=== PATIENT | male | born 1955 | race Caucasian/White ===

== ENCOUNTER 2022-11-21 19:18 | Inpatient (IN) ==
[2022-11-21] MEDS ORDERED: 0.9 % SODIUM CHLORIDE 1,000 ML IV ONE (19:26)
--- NOTE | 2022-11-21 19:44 | Emergency Department Note ---
HPI General Chief complaint: Recheck/Abnormal Lab/Rx Stated complaint: Hyponatremia. Pt informed by physician Time Seen by Provider: 11/21/22 19:20 Source: patient Mode of arrival: wheelchair Limitations: no limitations History of Present Illness HPI Narrative: Narrative: The patient presents to the ED due to hyponatremia. Patient had lab work obtained yesterday and was found to have a sodium of 116. His doctor consulted with him and told him to come to the emergency department yesterday. Patient states that he finally got the message this morning and his family states that due to his stubbornness, it took them all day to get him to come in. They do say that he seems slightly more confused than normal. Patient says that he has had a couple episodes of looser stool. He denies vomiting. He has a chronic cough of which she says there is no change. He denies chest pain or abdominal pain. He denies fever. He denies urinary problems. He denies any weakness or numbness. Related Data Home Medications Medication Instructions Recorded Confirmed losartan 25 mg tablet 25 mg PO QDAY 11/20/22 11/20/22 lovastatin 40 mg tablet 40 mg PO QDAY 11/20/22 11/20/22 methocarbamol 500 mg tablet 500 mg PO QDAY 11/20/22 11/20/22 omeprazole 20 mg capsule,delayed 20 mg PO QDAY 11/20/22 11/20/22 release sertraline 100 mg tablet 100 mg PO QDAY 11/20/22 11/20/22 Previous Rx's Medication Instructions Recorded cephalexin 500 mg capsule 500 mg PO Q6H 7 days #28 caps 11/20/22 Allergies Allergy/AdvReac Type Severity Reaction Status Date / Time hydrocodone AdvReac Intermediate Nausea Uncoded 11/20/22 16:58 Review of Systems ROS ROS Narrative: Narrative: All systems ED: reviewed and negative except as stated. [facility] Narrative Patient History Narrative: Narrative: Medical/Surgical/Family History All Active Problems (Updated 11/21/22 @ 20:59 by Cullen Fernandez MD) Acute hyponatremia (Acute) Social History Smoking Status: Current every day smoker Exam Narrative Narrative: Narrative: General Limitations: no limitations General appearance: Present alert and in no apparent distress Head Head: Present atraumatic and normal inspection Eye Eye: Present normal appearance, PERRL and EOMI ENT ENT: Present mucous membranes dry; Absent mucous membranes moist Neck Neck: Present normal inspection, full ROM and trachea midline Chest Chest: Present normal inspection and symmetric chest wall rise Respiratory Respiratory: Present normal lung sounds bilaterally; Absent respiratory distress Cardiovascular Cardiovascular: Present regular rate, normal rhythm and other (Bilateral radial 2+) Adbominal Abdominal: Present soft; Absent distention or tenderness Extremities Extremities: Present normal inspection, full ROM, pedal edema and other (Chronic appearing ulcerations on bilateral lower extremities. The right has no surrounding erythema. The left ulceration has very minimal surrounding erythema.) Back Back: Present full ROM; Absent CVA tenderness (R) or CVA tenderness (L) Neurological Neurological: Present alert, oriented X3 and CN II-XII intact; Absent motor sensory deficit Psychiatric Psychiatric: Present normal affect and normal mood Skin Skin: Present warm (WNL) and dry Course Consultations Consultation #1: I spoke to the hospitalist, Dr. Rodriguez. He agreed to admit this patient. Time: 21:13 Vital Signs Vital signs: Vital Signs Temperature 98.4 F 11/21/22 19:19 Pulse Rate 89 11/21/22 19:19 Respiratory Rate 18 11/21/22 19:19 Blood Pressure 96/53 11/21/22 19:19 Pulse Oximetry (%) 97 11/21/22 19:19 Oxygen Delivery Method Room Air 11/21/22 19:19 Temperature 98.4 F 11/21/22 19:19 Pulse Rate 86 11/21/22 21:01 Respiratory Rate 16 11/21/22 21:01 Blood Pressure 112/60 11/21/22 21:01 Pulse Oximetry (%) 97 11/21/22 21:01 Oxygen Delivery Method Room Air 11/21/22 19:19 [facility] Narrative Medical decision making narrative: Narrative: The patient presents with hyponatremia. Reportedly he is a little bit more confused than normal although appears very lucid in the ED. He has a nonfocal neurologic exam. We will obtain a head CT. We will verify with appropriate labs. We will give a liter bolus and then start NS at 150 an hour. I will consult with hospitalist for admission. Lab Data Lab results reviewed: Yes I reviewed the patient's lab results. 11/21/22 19:48 11/21/22 19:48 Labs: Lab Results 11/21/22 11/21/22 11/21/22 Range/Units 19:47 19:48 19:48 POC Hct 33.0 L (41-55) POC VBG pH 7.50 H (7.32-7.42) POC VBG pCO2 at Temp 35.1 L (41-51) POC VBG pO2 38 (25-40) POC VBG HCO3 27.7 (24-28) POC VBG Total CO2 29.0 (25-29) POC Venous O2 Sat 78.0 H (40-70) POC VBG Base Excess 5.0 H* (-2-2) VBG Lactic Acid 1.9 (0.5-2) POC Sodium 115 L* (133-145) Sodium 110 L* (133-145) mmol/L POC Potassium 3.7 (3.3-5.1) Potassium 3.5 (3.3-5.1) mmol/L POC Chloride 78 L (96-108) Chloride 73 L (96-108) mmol/L Carbon Dioxide 23 (22-30) mmol/L POC Total CO2 27.0 (22-30) Anion Gap 14.0 (8.0-16.0) POC BUN 6 (6-20) BUN 6 L (8-23) mg/dL Creatinine 0.3 L (0.7-1.2) mg/dL POC Creatinine 0.2 L (0.6-1.2) GFR Calculation 138 Glucose 81 (70-105) mg/dL POC Glucose 89 (70-105) Calcium 8.2 L (8.6-10.4) mg/dL POC WB Ioniz Calcium 1.07 L (1.16-1.32) Magnesium 1.5 L (1.6-2.5) mg/dL Total Bilirubin 0.8 (0.1-1.0) mg/dL AST 54 H (<40) U/L ALT 26 (<40) U/L Alkaline Phosphatase 162 H (39-117) U/L Total Protein 6.1 (5.9-8.4) gm/dL Albumin 3.1 L (3.2-5.2) gm/dL Globulin 3.0 (2.2-3.7) gm/dL Albumin/Globulin Ratio 1.0 (1.0-2.3) POC Troponin I (0.00-0.08) 11/21/22 Range/Units 19:49 POC Hct (41-55) POC VBG pH (7.32-7.42) POC VBG pCO2 at Temp (41-51) POC VBG pO2 (25-40) POC VBG HCO3 (24-28) POC VBG Total CO2 (25-29) POC Venous O2 Sat (40-70) POC VBG Base Excess (-2-2) VBG Lactic Acid (0.5-2) POC Sodium (133-145) Sodium (133-145) mmol/L POC Potassium (3.3-5.1) Potassium (3.3-5.1) mmol/L POC Chloride (96-108) Chloride (96-108) mmol/L Carbon Dioxide (22-30) mmol/L POC Total CO2 (22-30) Anion Gap (8.0-16.0) POC BUN (6-20) BUN (8-23) mg/dL Creatinine (0.7-1.2) mg/dL POC Creatinine (0.6-1.2) GFR Calculation Glucose (70-105) mg/dL POC Glucose (70-105) Calcium (8.6-10.4) mg/dL POC WB Ioniz Calcium (1.16-1.32) Magnesium (1.6-2.5) mg/dL Total Bilirubin (0.1-1.0) mg/dL AST (<40) U/L ALT (<40) U/L Alkaline Phosphatase (39-117) U/L Total Protein (5.9-8.4) gm/dL Albumin (3.2-5.2) gm/dL Globulin (2.2-3.7) gm/dL Albumin/Globulin Ratio (1.0-2.3) POC Troponin I < 0.02 (0.00-0.08) ED POC Tests ED POC Tests: ANJELICA - Influenza A Negative ANJELICA - Influenza B Negative ANJELICA - SARS Antigen Negative Radiology Data Radiology results reviewed: Yes I reviewed the patient's radiology results. Radiology results narrative: Per the radiologist, the head CT shows no acute intracranial hemorrhage, acute ischemia, or mass-effect. EKG Data EKG #1: EKG attestation: Yes I reviewed and interpreted this EKG. and Yes There are no EKG findings of acute coronary syndrome EKG results narrative: Sinus, rate 85, normal axis, QTC 499, AR 196, narrow complex QRS, no acute ST or T changes concerning for acute infarction CC TIME Critical Care Time Critical Care Time: Yes Total Critical Care Time: 65 Attestation: Without intervention, patient may have had a deleterious outcome Discharge Plan Patient/Caregiver Discharge Instructions Pt seen by PLASTIC [employer]ILER RELINER/PA only: No Clinical Impression: Acute hyponatremia Patient Disposition: Xfer As Inpt ([facility]) Condition: Fair Follow up with: Daya Yepez ARNP [Primary Care Provider] - Prescriptions: No Action omeprazole 20 mg capsule,delayed release(DR/EC) 20 mg PO QDAY methocarbamol 500 mg tablet 500 mg PO QDAY sertraline 100 mg tablet 100 mg PO QDAY losartan 25 mg tablet 25 mg PO QDAY lovastatin 40 mg tablet 40 mg PO QDAY cephalexin 500 mg capsule 500 mg PO Q6H 7 Days Qty: 28 0RF
[2022-11-21] MEDS: 0.9 % SODIUM CHLORIDE 1,000 ML IV SCH ×2 (19:56→21:17)
[2022-11-21 20:02] LABS: POC Calcium, Ionized 1.07 (1.16-1.32); POC Creatinine 0.2 (0.6-1.2); POC Potassium 3.7 (3.3-5.1)
[2022-11-21 20:41] LABS: ALT/SGPT 26 U/L (<40); AST/SGOT 54 U/L (<40); Albumin 3.1 gm/dL (3.2-5.2); Alkaline Phosphatase 162 U/L (39-117); Bilirubin,Total 0.8 mg/dL (0.1-1.0); Blood Urea Nitrogen 6 mg/dL (8-23); Calcium 8.2 mg/dL (8.6-10.4); Carbon Dioxide 23 mmol/L (22-30); Chloride 73 mmol/L (96-108); Glomerular Filtration Rate 138; Glucose 81 mg/dL (70-105)
[2022-11-21] MEDS ORDERED: MAGNESIUM SULFATE 2 GM/50 ML BAG IV SCH (21:07)
--- NOTE | 2022-11-21 21:18 | Internal Med History&Physical ---
HPI History of Present Illness Patient information: Note initiated : 11/21/22 at 9:07 pm Service Date, if different from initiated Date: [] Patient: Anival Devine a 67 y/o M admitted on for Hyponatremia. Pt informed by physician. Chief Complaint: [] History of present illness: Mr. Devien is a 67 year old M Presents the ED at request of his physician for labs that showed sodium of 116. These labs reviewed done at the urgent care yesterday. He was seen at the urgent care for bilateral leg swelling for which has had about a month but worse over the past week to where it is affecting his ambulation. He feels weak and has fallen few times. Looks like he is commonly around 130 or slightly below for his sodium. Of note patient was on chlorthalidone in the past but was taken off of because of low blood pressure and possibly for low sodium. Daughter stated that the patient struggles at home and that she will be living with the patient. Patient is given cephalexin for possible cellulitis versus Venous stasis dermatitis. Patient was asked to go to the ER given the low sodium. Patient is on an SSRI. Family felt that he might be slightly more confused than normal. Patient appeared lucid in the ED. No nausea vomiting but had a couple episodes of loose stool. Patient has a chronic cough which has not changed. CT brain neg Patient says he has little bit of diarrhea since starting the antibiotic. He is also had some nausea He has not been sick otherwise. No recent med changes. Family states his fluid intake is Average. Patient drinks 3-6 beers a day, states he is gone without alcohol for 3 to 4 days without withdrawals. Review of Systems: Pertinent positives as above plus some chronic mild cough and shortness of breath. Denies headache/fever/chills/nausea/vomiting/chest or abdominal pain/. Remaining 10 point review of system reviewed negative PFSH PFSH All Active Problems (Updated 11/21/22 @ 20:59 by Cullen Fernandez MD) Acute hyponatremia (Acute) Social History smoking status: Current every day smoker MEDS/ALLERGIES Home Medications and Allergies Home Medications Medication Instructions Recorded Confirmed Type cephalexin 500 mg capsule 500 mg PO Q6H 7 days #28 caps 11/20/22 11/20/22 Rx losartan 25 mg tablet 25 mg PO QDAY 11/20/22 11/20/22 History lovastatin 40 mg tablet 40 mg PO QDAY 11/20/22 11/20/22 History methocarbamol 500 mg tablet 500 mg PO QDAY 11/20/22 11/20/22 History omeprazole 20 mg capsule,delayed 20 mg PO QDAY 11/20/22 11/20/22 History release sertraline 100 mg tablet 100 mg PO QDAY 11/20/22 11/20/22 History Allergies Allergy/AdvReac Type Severity Reaction Status Date / Time hydrocodone AdvReac Intermediate Nausea Uncoded 11/21/22 21:30 EXAM Constitutional Vitals: Temp Pulse Resp BP Pulse Ox O2 Del Method 98.4 F 87 16 121/69 99 Room Air 11/21/22 19:19 11/21/22 20:41 11/21/22 20:41 11/21/22 20:41 11/21/22 20:41 11/21/22 19:19 Exam: General: Alert, Awake, No acute Distress Eyes/N/T: EOMI, PERRL, MM Head/Neck: neck supple, normocephalic atraumatic CV: RRR, No murmurs, normal s1/s2 Pulm: Clear b/l, no wheezing/rhonchi/rales Abd: soft, nontender, +BS x4 Ext: no clubbing/cyanosis, RLE 2-3+ and LLE 1+ edema, mild erythema generalized over right and not warm or indurated. Neuro: Alert, no focal deficits, moves all extremities, CN 2-12 grossly intact, sensations intact b/l upper/lower Skin: warm/dry DATA Data Completed and Pending Labs: Labs from last 24 hours 11/21/22 11/21/22 11/21/22 19:49 19:48 19:48 WBC RBC Hgb Hct POC Hct 33.0 L MCV MCH MCHC RDW Plt Count MPV Immature Gran % (Auto) Neut % (Auto) Immature Gran # POC VBG pH POC VBG pCO2 at Temp POC VBG pO2 POC VBG HCO3 POC VBG Total CO2 POC Venous O2 Sat POC VBG Base Excess VBG Lactic Acid POC Sodium 115 L* Sodium 110 L* POC Potassium 3.7 Potassium 3.5 POC Chloride 78 L Chloride 73 L Carbon Dioxide 23 POC Total CO2 27.0 Anion Gap 14.0 POC BUN 6 BUN 6 L Creatinine 0.3 L POC Creatinine 0.2 L GFR Calculation 138 Glucose 81 POC Glucose 89 Calcium 8.2 L POC WB Ioniz Calcium 1.07 L Magnesium 1.5 L Total Bilirubin 0.8 AST 54 H ALT 26 Alkaline Phosphatase 162 H Total Protein 6.1 Albumin 3.1 L Globulin 3.0 Albumin/Globulin Ratio 1.0 POC Troponin I < 0.02 11/21/22 11/21/22 19:48 19:47 WBC Pending RBC Pending Hgb Pending Hct Pending POC Hct MCV Pending MCH Pending MCHC Pending RDW Pending Plt Count Pending MPV Pending Immature Gran % (Auto) Pending Neut % (Auto) Pending Immature Gran # Pending POC VBG pH 7.50 H POC VBG pCO2 at Temp 35.1 L POC VBG pO2 38 POC VBG HCO3 27.7 POC VBG Total CO2 29.0 POC Venous O2 Sat 78.0 H POC VBG Base Excess 5.0 H* VBG Lactic Acid 1.9 POC Sodium Sodium POC Potassium Potassium POC Chloride Chloride Carbon Dioxide POC Total CO2 Anion Gap POC BUN BUN Creatinine POC Creatinine GFR Calculation Glucose POC Glucose Calcium POC WB Ioniz Calcium Magnesium Total Bilirubin AST ALT Alkaline Phosphatase Total Protein Albumin Globulin Albumin/Globulin Ratio POC Troponin I A/P Narrative A/P Narrative: A: *Acute on chronic hyponatremia: * *Hypomagnesemia: *HTN/HLD: *Anemia, chronic: *Depression: *GERD: *Anemia, chronic: *Tobacco abuse: *peripheral edema R>L *outpt treated for possible cellulitis P: -ddavp/3% -fluid restrict -serial sodium -monitor i/o's, uop -Monitor and replace electrolytes and trend - -Decrease SSRI and consider weaning off to alternative as oupt depending on hyponatremia w/u -Home Medication reconciliation -Smoking cessation counseling > 3 minutes -PT/OT -CM for placement needs -ppx: Lovenox Time Spent With Patient Time: Total time spent is greater than 50% in coordination of care (as documented) at patient's floor/unit and/or counseling patient: Initial: Total time with patient: 75 - 90 minutes
[2022-11-21 21:30] LABS: Basophils # (Auto) 0.02 K/mcL (0.00-0.30); Basophils % (Auto) 0.2 % (0.0-2.0); Eosinophils # (Auto) 0 K/mcL (0.00-0.70); Eosinophils % (Auto) 0 % (0.0-7.0); Hematocrit 30.2 % (40.1-51.0); Hemoglobin 11.2 g/dL (13.7-17.5); Lymphocytes # (Auto) 0.24 K/mcL (1.50-4.80); Lymphocytes % (Auto) 2.6 % (15.5-49.0); Mean Cell Volume 100.3 fL (80.0-100.0); Mean Corpuscular HGB Conc 37.1 g/dL (31.0-36.0); Mean Platelet Volume 10.7 fL (8.8-12.5); Monocytes % (Auto) 9.8 % (1.0-12.0); Neutrophils % (Auto) 86.7 % (38.0-78.0); Platelet Count 133 K/mcL (140-440); RBC 3.01 M/mcL (4.63-6.08); Red Cell Distribution Width 11.5 % (11.5-14.5); WBC 9.2 K/mcL (4.5-11.0)
[2022-11-21 22:10] LABS: Thyroid Stimulating Hormone 1.29 uIU/mL (0.27-5.01)
[2022-11-21 22:10] LABS: Appearance,Urine CLEAR (Clear); Bilirubin,Urine NEGATIVE (Negative); Color,Urine LT. YELLOW; Culture Indicated,Urine No; Glucose,Urine (UA) NEGATIVE (Negative); Ketones,Urine TRACE mg/dL (Negative); Leukocyte Esterase,Urine NEGATIVE /uL (Negative); Nitrate,Urine NEGATIVE (Negative); Protein,Urine NEGATIVE (Negative); Specific Gravity,Urine <= 1.005 (1.000-1.035); Urine Blood NEGATIVE ery/mcL (Negative); Urine RBC 0 /hpf (0-3); Urine Squamous Epithelial Cell 0 /hpf (0-4); Urine WBC < 1 /hpf (0-4); Urobilinogen,Urine Normal
[2022-11-21 22:50] LABS: Sodium, Urine Random < 10 mmol/L
[2022-11-21] MEDS ORDERED: POTASSIUM CHLORIDE 40 MEQ in DEXTROSE 5% IN WATER 500 ML IV PRN (23:08)
[2022-11-21] MEDS ORDERED: HYDROcodone/APAP 5/325MG TABLET PO PRN (23:08)
[2022-11-21] MEDS ORDERED: POLYETHYLENE GLYCOL 3350 17 GM PACKET PO PRN (23:08)
[2022-11-21] MEDS ORDERED: ONDANSETRON 4 MG/2 ML VIAL IV PRN (23:08)
[2022-11-21] MEDS ORDERED: POTASSIUM CHLORIDE 20 MEQ TABLET PO PRN ×2 (23:08)
[2022-11-21] MEDS ORDERED: chlordiazePOXIDE 25 MG CAPSULE PO PRN (23:08)
[2022-11-21] MEDS ORDERED: SENNOSIDES 1 TABLET PO PRN (23:08)
[2022-11-21] MEDS ORDERED: LORazepam 2 MG/ML VIAL IV PRN (23:08)
[2022-11-21] MEDS ORDERED: IPRATROPIUM/ALBUTEROL 3 ML AMPUL.NEB NEB PRN (23:08)
[2022-11-21] MEDS ORDERED: MAGNESIUM SULFATE 2 GM/50 ML BAG IV PRN (23:08)
[2022-11-21] MEDS: MULTIVIT,THER IRON,CA,FA & MIN 1 TABLET PO SCH (23:49)
[2022-11-21] MEDS: FOLIC ACID 1 MG TABLET PO SCH ×2 (23:49→23:51)
[2022-11-21] MEDS: 0.9 % SODIUM CHLORIDE 10 ML SYRINGE IV SCH ×2 (23:50→23:51)
[2022-11-21] MEDS: THIAMINE 100 MG TABLET PO SCH (23:51)
[2022-11-22 00:05] LABS: POC Blood Urea Nitrogen < 3 (6-20); POC Calcium, Ionized 1.04 (1.16-1.32); POC Chloride 87 (96-108); POC Creatinine < 0.2 (0.6-1.2); POC Glucose, Random 91 (70-105); POC Potassium 3.2 (3.3-5.1); POC Sodium 122 (133-145)
[2022-11-22] MEDS ORDERED: HYDROcodone/APAP 5/325MG TABLET PO ONE (00:06)
--- NOTE | 2022-11-22 04:14 | Cat Scan Report ---
CLINICAL INFORMATION: Acute mental status change COMPARISON: Brain MRI 12/01/2017 TECHNIQUE: 2.5 mm helical slices were obtained in the skull base to vertex. Following reconstruction, axial reformatted images were reviewed at bone and parenchymal windows. The exam was performed using radiation dose optimization techniques including, but not limited to, automated exposure control, adjustment of the mA and/or kV according to patient size and use of iterative reconstruction technique. FINDINGS: The ventricles, sulci, fissures, and cisterns are symmetrically enlarged compatible with mild age-related atrophy. No extra-axial fluid collections are identified. Mild patchy chronic ischemic changes, in the deep cerebral white matter, are expected for age. There is no hemorrhage, mass effect, or edema. Bone windows show no osseous abnormality. [Opacification of a few inferior right mastoid air cells appreciated IMPRESSION: Mild atrophy and chronic ischemic changes in the deep cerebral white matter-expected for age. No acute findings Mild right mastoiditis Interpreted and Authenticated by: Farhad Myrick 11/22/22
[2022-11-22] MEDS: 0.9 % SODIUM CHLORIDE 10 ML SYRINGE IV SCH ×6 (05:42→20:22)
[2022-11-22 07:05] LABS: ALT/SGPT 22 U/L (<40); AST/SGOT 42 U/L (<40); Albumin 2.5 gm/dL (3.2-5.2); Albumin/Globulin Ratio 0.9 (1.0-2.3); Alkaline Phosphatase 142 U/L (39-117); Bilirubin,Direct 0.3 mg/dL (<0.3); Bilirubin,Total 0.8 mg/dL (0.1-1.0); Blood Urea Nitrogen 3 mg/dL (8-23); Calcium 7.7 mg/dL (8.6-10.4); Carbon Dioxide 25 mmol/L (22-30); Chloride 90 mmol/L (96-108); Globulin 2.8 gm/dL (2.2-3.7); Glomerular Filtration Rate 138; Glucose 87 mg/dL (70-105); Lactate Dehydrogenase 257 U/L (135-225); Phosphorous 3.1 mg/dL (2.5-4.5); Triglycerides 38 mg/dL (<150); Uric Acid 3.2 mg/dL (2.5-8.0)
[2022-11-22 07:55] LABS: Basophils # (Auto) 0.02 K/mcL (0.00-0.30); Basophils % (Auto) 0.2 % (0.0-2.0); Eosinophils # (Auto) 0.01 K/mcL (0.00-0.70); Eosinophils % (Auto) 0.1 % (0.0-7.0); Hematocrit 28.9 % (40.1-51.0); Hemoglobin 10.7 g/dL (13.7-17.5); Lymphocytes % (Auto) 6.1 % (15.5-49.0); Mean Cell Volume 101.8 fL (80.0-100.0); Mean Platelet Volume 10.9 fL (8.8-12.5); Monocytes # (Auto) 0.98 K/mcL (0.10-0.90); Platelet Count 116 K/mcL (140-440); RBC 2.84 M/mcL (4.63-6.08); Red Cell Distribution Width 11.5 % (11.5-14.5); WBC 8.1 K/mcL (4.5-11.0)
[2022-11-22] MEDS ORDERED: METHOCARBAMOL 500 MG TABLET PO PRN (08:12)
--- NOTE | 2022-11-22 08:16 | Internal Med Progress Note ---
SUBJECTIVE Subjective Patient information: Note initiated : 11/22/22 at 8:11 am Service Date, if different from initiated Date: [] Patient: Anival Devine 67 y/o M admitted on 11/21/22 for Hyponatremia. Pt informed by physician. Chief Complaint: [] Interval history: History of present illness: Mr. Devine is a 67 year old M Presents the ED at request of his physician for labs that showed sodium of 116. These labs reviewed done at the urgent care yesterday. He was seen at the urgent care for bilateral leg swelling for which has had about a month but worse over the past week to where it is affecting his ambulation. He feels weak and has fallen few times. Looks like he is commonly around 130 or slightly below for his sodium. Of note patient was on chlorthalidone in the past but was taken off of because of low blood pressure and possibly for low sodium. Daughter stated that the patient struggles at home and that she will be living with the patient. Patient is given cephalexin for possible cellulitis versus Venous stasis de rmatitis. Patient was asked to go to the ER given the low sodium. Patient is on an SSRI. Family felt that he might be slightly more confused than normal. Patient appeared lucid in the ED. No nausea vomiting but had a couple episodes of loose stool. Patient has a chronic cough which has not changed. CT brain neg Patient says he has little bit of diarrhea since starting the antibiotic. He is also had some nausea He has not been sick otherwise. No recent med changes. Family states his fluid intake is Average. Patient drinks 3-6 beers a day, states he is gone without alcohol for 3 to 4 day s without withdrawals. 11/22 Patient seems to sleep well. Patient feeling better today more alert. Sodium corrected too rapidly and will reverse. 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 Review of Systems: denies headache/fever/chills/nausea/vomiting/chest or abdominal pain/cough/dyspnea/diarrhea. Otherwise see above. Constitutional Vitals: Vital Signs Temp Pulse Resp BP Pulse Ox O2 Del Method 97.8 F 72 14 115/60 96 Room Air 11/22/22 08:01 11/22/22 08:01 11/22/22 08:01 11/22/22 08:01 11/22/22 08:01 11/22/22 04:01 Period Temp Pulse Resp BP Sys/Horne Pulse Ox O2 Del Method O2 Flow Rate Last 24 Hr 97.8 F-99.2 F 70-89 13-20 96-122/53-74 96-99 Room Air-Room Air Intake and Output 11/21/22 11/22/22 11/22/22 19:59 03:59 11:59 Intake Total 1505 Output Total 600 500 Balance 905 -500 Weight 61.235 kg 57.878 kg Intake & Output: Intake & Output 11/21/22 11/22/22 11/22/22 19:59 03:59 11:59 Intake Total 1505 Output Total 600 500 Balance 905 -500 Weight 61.235 kg 57.878 kg Intake: IV 1385 Sodium Chloride 0.9% 1,000 ml @ 1335 125 mls/hr IV .Q8H [facility] Rx#: [id number] Oral 120 Output: Void Amount 600 500 Other: Urine Appearance Clear Clear Urine Color Yellow Yellow Urine Odor Normal Normal Exam: General: Alert, Awake, No acute Distress Eyes/N/T: EOMI, Head/Neck: neck supple, CV: RRR, No murmurs, Pulm: Clear b/l, no wheezing/rhonchi/rales Abd: soft, nontender, +BS x4 Ext: no clubbing/cyanosis, RLE 2+ and LLE 1+ edema, mild erythema generalized o anna right and not warm or indurated. Neuro: Alert, no focal deficits, moves all extremities, Skin: warm/dry OBJ DATA Labs 11/22/22 05:30 11/22/22 05:30 Labs: Abnormal Lab Results 11/22/22 11/22/22 11/22/22 05:30 05:30 00:02 RBC 2.84 L Hgb 10.7 L Hct 28.9 L POC Hct 30.0 L MCV 101.8 H MCH 37.7 H MCHC 37.0 H Plt Count 116 L Immature Gran % (Auto) 0.6 H Neut % (Auto) 81.0 H Lymph % (Auto) 6.1 L Lymph # (Auto) 0.50 L [place] # (Auto) 0.98 H Immature Gran # POC VBG pH POC VBG pCO2 at Temp POC Venous O2 Sat POC VBG Base Excess POC Sodium 122 L Sodium 124 L POC Potassium 3.2 L POC Chloride 87 L Chloride 90 L POC BUN < 3 L BUN 3 L Creatinine 0.3 L POC Creatinine < 0.2 L Osmolality Calcium 7.7 L POC WB Ioniz Calcium 1.04 L Magnesium Direct Bilirubin 0.3 H AST 42 H Alkaline Phosphatase 142 H Lactate Dehydrogenase 257 H Total Protein 5.3 L Albumin 2.5 L Albumin/Globulin Ratio 0.9 L Urine Ketones 11/21/22 11/21/22 11/21/22 21:27 21:12 19:48 RBC Hgb Hct POC Hct 33.0 L MCV MCH MCHC Plt Count Immature Gran % (Auto) Neut % (Auto) Lymph % (Auto) Lymph # (Auto) [place] # (Auto) Immature Gran # POC VBG pH POC VBG pCO2 at Temp POC Venous O2 Sat POC VBG Base Excess POC Sodium 115 L* Sodium POC Potassium POC Chloride 78 L Chloride POC BUN BUN Creatinine POC Creatinine 0.2 L Osmolality 232 L Calcium POC WB Ioniz Calcium 1.07 L Magnesium Direct Bilirubin AST Alkaline Phosphatase Lactate Dehydrogenase Total Protein Albumin Albumin/Globulin Ratio Urine Ketones Trace A 11/21/22 11/21/22 11/21/22 19:48 19:48 19:47 RBC 3.01 L Hgb 11.2 L Hct 30.2 L POC Hct MCV 100.3 H MCH 37.2 H MCHC 37.1 H Plt Count 133 L Immature Gran % (Auto) 0.7 H Neut % (Auto) 86.7 H Lymph % (Auto) 2.6 L Lymph # (Auto) 0.24 L [place] # (Auto) Immature Gran # 0.06 H POC VBG pH 7.50 H POC VBG pCO2 at Temp 35.1 L POC Venous O2 Sat 78.0 H POC VBG Base Excess 5.0 H* POC Sodium Sodium 110 L* POC Potassium POC Chloride Chloride 73 L POC BUN BUN 6 L Creatinine 0.3 L POC Creatinine Osmolality Calcium 8.2 L POC WB Ioniz Calcium Magnesium 1.5 L Direct Bilirubin AST 54 H Alkaline Phosphatase 162 H Lactate Dehydrogenase Total Protein Albumin 3.1 L Albumin/Globulin Ratio Urine Ketones Meds: Medications Acetaminophen (Acetaminophen 325 Mg Tablet) 650 mg PO Q6HP PRN; Protocol PRN Reason: Per Pain Protocol/Fever > 101 Hydrocodone Bitart/Acetaminophen (Hydrocodone/Apap 5/325mg Tablet) 1 tab PO Q4HP PRN PRN Reason: PAIN LEVEL 3-6 Last Admin: 11/22/22 00:08 Dose: 1 tab Albuterol/Ipratropium (Ipratropium/Albuterol 3 Ml Ampul.Neb) 3 ml NEB Q4HP PRN PRN Reason: Shortness Of Breath Chlordiazepoxide HCl (Chlordiazepoxide 25 Mg Capsule) 25 mg PO UD PRN; Protocol PRN Reason: Alcohol Withdrawal/Assess CIWA Enoxaparin Sodium (Enoxaparin 40 Mg/0.4 Ml Syringe) 40 mg SQ DAILY [facility] Folic Acid (Folic Acid 1 Mg Tablet) 1 mg PO DAILY [facility] Last Admin: 11/21/22 23:51 Dose: 1 mg Magnesium Sulfate (Magnesium Sulfate) 2 gm in 50 mls @ 50 mls/hr IV UD PRN PRN Reason: Magnesium </= 1.6 Potassium Chloride 40 meq/ (Dextrose) 520 mls @ 130 mls/hr IV UD PRN PRN Reason: Potassium < 3 Iron Carb/Multivit/[place]/Folic Acid (Multivit,Ther Iron,Ca,Fa & Min 1 Tablet) 1 tab PO DAILY [facility] Last Admin: 11/21/22 23:49 Dose: 1 tab Lorazepam (Lorazepam 2 Mg/Ml Vial) 0 mg IV UD PRN; Protocol PRN Reason: Alcohol Withdrawal/Assess CIWA Ondansetron HCl (Ondansetron 4 Mg/2 Ml Vial) 4 mg IV Q4HP PRN PRN Reason: Nausea And Vomiting Polyethylene Glycol (Polyethylene Glycol 3350 17 Gm Packet) 17 gm PO DAILYP PRN PRN Reason: Constipation Potassium Chloride (Potassium Chloride 20 Meq Tablet) 40 meq PO UD PRN PRN Reason: Potassium < 3 Last Admin: 11/22/22 01:52 Dose: 40 meq Potassium Chloride (Potassium Chloride 20 Meq Tablet) 40 meq PO UD PRN PRN Reason: Potssium is 3-3.5 Senna (Sennosides 1 Tablet) 2 tab PO DAILYP PRN PRN Reason: Constipation Sodium Chloride (0.9 % Sodium Chloride 10 Ml Syringe) 10 ml IV Q8 [facility] Last Admin: 11/22/22 05:44 Dose: Not Given Thiamine HCl (Thiamine 100 Mg Tablet) 100 mg PO QDAY [facility] Last Admin: 11/21/22 23:51 Dose: 100 mg A/P Narrative A/P Narrative: A: *Acute on chronic hyponatremia: 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 with low urine sodium and osmolality * *Hypomagnesemia/Hypokalemia: *HTN/HLD: *Anemia, chronic: *Depression: *GERD: *Anemia, chronic: *Tobacco abuse: *Alcohol abuse: *Thrombocytopenia: Likely chronic, monitor *peripheral edema R>L *outpt treated for possible cellulitis P: -ddavp to reverse rapid correction & D5W (large discrepancy between poc chem and lab) -serial sodium -monitor i/o's, uop -Monitor and correct electrolytes deficiencies and trend -CIWA, vitamins/minerals, prn benzo -cont home ARB, statin -Smoking cessation counseling -PT/OT -CM for placement needs -ppx: Lovenox / home ppi Time Spent With Patient Time: Total time spent is greater than 50% in coordination of care (as documented) at patient's floor/unit and/or counseling patient: Subsequent: Total time with patient: 50 - 65 Minutes QUALITY Stroke Symptom Onset Unknown: No VTE Deep Vein Thrombosis/Pulmonary Embolism Present on Admission: No
[2022-11-22] MEDS: FOLIC ACID 1 MG TABLET PO SCH (08:21)
[2022-11-22] MEDS: ENOXAPARIN 40 MG/0.4 ML SYRINGE SQ SCH (08:21)
[2022-11-22] MEDS: THIAMINE 100 MG TABLET PO SCH (08:21)
[2022-11-22] MEDS: MULTIVIT,THER IRON,CA,FA & MIN 1 TABLET PO SCH (08:21)
[2022-11-22] MEDS: OMEPRAZOLE 20 MG CAPSULE PO SCH (08:38)
[2022-11-22] MEDS: LOSARTAN 25 MG TABLET PO SCH (08:38)
[2022-11-22] MEDS: SERTRALINE 50 MG TABLET PO SCH (08:38)
[2022-11-22] MEDS: ATORVASTATIN 10 MG TABLET PO SCH (08:38)
[2022-11-22] MEDS: CEPHALEXIN 500 MG CAPSULE PO SCH ×3 (08:38→20:18)
[2022-11-22 08:39] LABS: POC Blood Urea Nitrogen < 3 (6-20); POC Chloride 89 (96-108); POC Creatinine 0.2 (0.6-1.2); POC Glucose, Random 92 (70-105); POC Potassium 3.7 (3.3-5.1); POC Sodium 125 (133-145)
[2022-11-22] MEDS: DEXTROSE 5% IN WATER 1,000 ML IV SCH ×2 (08:46→15:40)
[2022-11-22] MEDS: DESMOPRESSIN ACETATE 2 MCG in 0.9 % SODIUM CHLORIDE 50 ML IV SCH ×3 (08:51→20:21)
[2022-11-22] MEDS: NICOTINE 21 MG PATCH TOPICAL SCH (10:10)
[2022-11-22] MEDS ORDERED: oxyCODONE/APAP 5/325MG TABLET PO PRN (10:24)
[2022-11-22 11:38] LABS: POC Calcium, Ionized 1.12 (1.16-1.32); POC Creatinine 0.2 (0.6-1.2); POC Potassium 3.3 (3.3-5.1)
[2022-11-22 13:37] LABS: POC Calcium, Ionized 1.02 (1.16-1.32); POC Creatinine 0.2 (0.6-1.2); POC Potassium 3.4 (3.3-5.1)
[2022-11-22 16:19] LABS: POC Blood Urea Nitrogen 5 (6-20); POC Calcium, Ionized 1.09 (1.16-1.32); POC Chloride 85 (96-108); POC Creatinine < 0.2 (0.6-1.2); POC Glucose, Random 102 (70-105); POC Potassium 3.4 (3.3-5.1); POC Sodium 121 (133-145)
[2022-11-22] MEDS ORDERED: NEUTRA PHOS 1 PACKET PO SCH (17:05)
[2022-11-22 17:24] LABS: POC Blood Urea Nitrogen 5 (6-20); POC Calcium, Ionized 1.06 (1.16-1.32); POC Chloride 85 (96-108); POC Creatinine < 0.2 (0.6-1.2); POC Glucose, Random 108 (70-105); POC Potassium 3.3 (3.3-5.1); POC Sodium 120 (133-145)
[2022-11-22] MEDS: DEXTROSE 5%-NS 1,000 ML IV SCH ×2 (17:39→17:58)
[2022-11-22] MEDS ORDERED: DEXTROSE 5% IN WATER 1,000 ML IV SCH (18:00)
[2022-11-22 20:16] LABS: POC Blood Urea Nitrogen 4 (6-20); POC Calcium, Ionized 1.11 (1.16-1.32); POC Chloride 84 (96-108); POC Creatinine < 0.2 (0.6-1.2); POC Glucose, Random 109 (70-105); POC Potassium 3.5 (3.3-5.1); POC Sodium 119 (133-145)
[2022-11-22 21:05] LABS: Blood Urea Nitrogen 6 mg/dL (8-23); Calcium 7.5 mg/dL (8.6-10.4); Carbon Dioxide 25 mmol/L (22-30); Chloride 82 mmol/L (96-108); Glomerular Filtration Rate 138; Glucose 105 mg/dL (70-105)
[2022-11-22] MEDS ORDERED: SODIUM CHLORIDE 3 % 500 ML IV ONE (21:37)
[2022-11-23] MEDS: CEPHALEXIN 500 MG CAPSULE PO SCH ×2 (03:53→08:27)
[2022-11-23] MEDS: 0.9 % SODIUM CHLORIDE 10 ML SYRINGE IV SCH ×3 (05:22→20:27)
[2022-11-23 07:27] LABS: Basophils # (Auto) 0.02 K/mcL (0.00-0.30); Basophils % (Auto) 0.3 % (0.0-2.0); Eosinophils # (Auto) 0.03 K/mcL (0.00-0.70); Eosinophils % (Auto) 0.4 % (0.0-7.0); Hematocrit 28.6 % (40.1-51.0); Hemoglobin 10.3 g/dL (13.7-17.5); Lymphocytes % (Auto) 6.6 % (15.5-49.0); Mean Cell Volume 102.9 fL (80.0-100.0); Mean Platelet Volume 10.5 fL (8.8-12.5); Monocytes # (Auto) 0.64 K/mcL (0.10-0.90); Monocytes % (Auto) 8.5 % (1.0-12.0); Neutrophils % (Auto) 83.4 % (38.0-78.0); Platelet Count 128 K/mcL (140-440); RBC 2.78 M/mcL (4.63-6.08); Red Cell Distribution Width 11.6 % (11.5-14.5); WBC 7.5 K/mcL (4.5-11.0)
--- NOTE | 2022-11-23 07:55 | Internal Med Progress Note ---
SUBJECTIVE Subjective Patient information: Note initiated : 11/23/22 at 7:50 am Service Date, if different from initiated Date: [] Patient: Anival Devine 67 y/o M admitted on 11/21/22 for Hyponatremia. Pt informed by physician. Chief Complaint: [] Interval history: History of present illness: Mr. Devine is a 67 year old M Presents the ED at request of his physician for labs that showed sodium of 116. These labs reviewed done at the urgent care yesterday. He was seen at the urgent care for bilateral leg swelling for which has had about a month but worse over the past week to where it is affecting his ambulation. He feels weak and has fallen few times. Looks like he is commonly around 130 or slightly below for his sodium. Of note patient was on chlorthalidone in the past but was taken off of because of low blood pressure and possibly for low sodium. Daughter stated that the patient struggles at home and that she will be living with the patient. Patient is given cephalexin for possible cellulitis versus Venous stasis de rmatitis. Patient was asked to go to the ER given the low sodium. Patient is on an SSRI. Family felt that he might be slightly more confused than normal. Patient appeared lucid in the ED. No nausea vomiting but had a couple episodes of loose stool. Patient has a chronic cough which has not changed. CT brain neg Patient says he has little bit of diarrhea since starting the antibiotic. He is also had some nausea He has not been sick otherwise. No recent med changes. Family states his fluid intake is Average. Patient drinks 3-6 beers a day, states he is gone without alcohol for 3 to 4 day s without withdrawals. 11/22 Patient seems to sleep well. Patient feeling better today more alert. Sodium corrected too rapidly and will reverse. 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 11/23 Patient says he feels quite tired today. Sodium coming back up appropriately. Monitor closely. No apparent signs of withdrawal at this point. No other complaints. Thrombocytopenia stable. Anemia stable Review of Systems: denies headache/fever/chills/nausea/vomiting/chest or abdominal pain/cough/dyspnea/diarrhea. Otherwise see above. Constitutional Vitals: Vital Signs Temp Pulse Resp BP Pulse Ox O2 Del Method 98.2 F 63 12 113/58 93 Room Air 11/23/22 04:00 11/23/22 06:01 11/23/22 06:01 11/23/22 06:01 11/23/22 06:01 11/23/22 04:20 Period Temp Pulse Resp BP Sys/Horne Pulse Ox O2 Del Method O2 Flow Rate Last 24 Hr 97 F-98.2 F 63-77 12-27 95-139/51-78 92-100 Room Air-Room Air Intake and Output 11/22/22 11/23/22 11/23/22 19:59 03:59 11:59 Intake Total 923.5 1077.5 Output Total 250 Balance 923.5 1077.5 -250 Intake & Output: Intake & Output 11/22/22 11/23/22 11/23/22 19:59 03:59 11:59 Intake Total 923.5 1077.5 Output Total 250 Balance 923.5 1077.5 -250 Intake: IV 923.5 505.5 Ddavp 2 Mcg In Sodium Chloride 50.5 50.5 0.9% 50 ml @ 200 mls/hr IV Q6H [facility] Rx#:[id number] Dextrose 5% in Water 1,000 ml @ 873 354 125 mls/hr IV .Q8H [facility] Rx#: [id number] Sodium Chloride 3% 500 ml @ 20 101 mls/hr IV ONCE ONE Rx#: [id number] Oral 572 Output: Void Amount 250 Other: Meal Lunch 1 pudding, 1 ice cream Percent of Meal Consumed 50% 100% Feeding Ability Independent Urine Appearance Clear Urine Color Red Brown Urine Odor Normal Stool Size Large Stool Color Brown Yellow Stool Consistency Liquid # Bowel Movements 2 # of times incontinent of 0 Bowels Exam: General: Alert, Awake, No acute Distress Eyes/N/T: EOMI, Head/Neck: neck supple, CV: RRR, No murmurs, Pulm: Clear b/l, no wheezing/rhonchi/rales Abd: soft, nontender, +BS x4 Ext: no clubbing/cyanosis, mild b/l LE edema, Neuro: Alert, no focal deficits, moves all extremities, Skin: warm/dry OBJ DATA Labs 11/23/22 05:30 11/23/22 01:57 Labs: Abnormal Lab Results 11/23/22 11/23/22 11/22/22 05:30 01:57 22:50 RBC 2.78 L Hgb 10.3 L Hct 28.6 L POC Hct MCV 102.9 H MCH 37.1 H MCHC Plt Count 128 L Immature Gran % (Auto) 0.8 H Neut % (Auto) 83.4 H Lymph % (Auto) 6.6 L Lymph # (Auto) 0.50 L [place] # (Auto) Immature Gran # 0.06 H POC VBG pH POC VBG pCO2 at Temp POC Venous O2 Sat POC VBG Base Excess POC Sodium Sodium 118 L* 114 L* POC Potassium POC Chloride Chloride Anion Gap POC BUN BUN Creatinine POC Creatinine POC Glucose Osmolality Calcium POC WB Ioniz Calcium Phosphorus Magnesium Direct Bilirubin AST Alkaline Phosphatase Lactate Dehydrogenase Total Protein Albumin Albumin/Globulin Ratio Urine Ketones 11/22/22 11/22/22 11/22/22 20:12 20:04 20:04 RBC Hgb Hct POC Hct 29.0 L MCV MCH MCHC Plt Count Immature Gran % (Auto) Neut % (Auto) Lymph % (Auto) Lymph # (Auto) [place] # (Auto) Immature Gran # POC VBG pH POC VBG pCO2 at Temp POC Venous O2 Sat POC VBG Base Excess POC Sodium 119 L Sodium 113 L* POC Potassium POC Chloride 84 L Chloride 82 L Anion Gap 6.0 L POC BUN 4 L BUN 6 L Creatinine 0.3 L POC Creatinine < 0.2 L POC Glucose 109 H Osmolality Calcium 7.5 L POC WB Ioniz Calcium 1.11 L Phosphorus 2.1 L Magnesium Direct Bilirubin AST Alkaline Phosphatase Lactate Dehydrogenase Total Protein Albumin Albumin/Globulin Ratio Urine Ketones 11/22/22 11/22/22 11/22/22 17:21 16:16 13:33 RBC Hgb Hct POC Hct 30.0 L 30.0 L 28.0 L MCV MCH MCHC Plt Count Immature Gran % (Auto) Neut % (Auto) Lymph % (Auto) Lymph # (Auto) [place] # (Auto) Immature Gran # POC VBG pH POC VBG pCO2 at Temp POC Venous O2 Sat POC VBG Base Excess POC Sodium 120 L 121 L 122 L Sodium POC Potassium POC Chloride 85 L 85 L 88 L Chloride Anion Gap POC BUN 5 L 5 L 5 L BUN Creatinine POC Creatinine < 0.2 L < 0.2 L 0.2 L POC Glucose 108 H 164 H Osmolality Calcium POC WB Ioniz Calcium 1.06 L 1.09 L 1.02 L Phosphorus Magnesium Direct Bilirubin AST Alkaline Phosphatase Lactate Dehydrogenase Total Protein Albumin Albumin/Globulin Ratio Urine Ketones 11/22/22 11/22/22 11/22/22 11:35 08:37 05:30 RBC Hgb Hct POC Hct 28.0 L 32.0 L MCV MCH MCHC Plt Count Immature Gran % (Auto) Neut % (Auto) Lymph % (Auto) Lymph # (Auto) [place] # (Auto) Immature Gran # POC VBG pH POC VBG pCO2 at Temp POC Venous O2 Sat POC VBG Base Excess POC Sodium 123 L 125 L Sodium 124 L POC Potassium POC Chloride 88 L 89 L Chloride 90 L Anion Gap POC BUN < 3 L BUN 3 L Creatinine 0.3 L POC Creatinine 0.2 L 0.2 L POC Glucose 119 H Osmolality Calcium 7.7 L POC WB Ioniz Calcium 1.12 L 1.10 L Phosphorus Magnesium Direct Bilirubin 0.3 H AST 42 H Alkaline Phosphatase 142 H Lactate Dehydrogenase 257 H Total Protein 5.3 L Albumin 2.5 L Albumin/Globulin Ratio 0.9 L Urine Ketones 11/22/22 11/22/22 11/21/22 05:30 00:02 21:27 RBC 2.84 L Hgb 10.7 L Hct 28.9 L POC Hct 30.0 L MCV 101.8 H MCH 37.7 H MCHC 37.0 H Plt Count 116 L Immature Gran % (Auto) 0.6 H Neut % (Auto) 81.0 H Lymph % (Auto) 6.1 L Lymph # (Auto) 0.50 L [place] # (Auto) 0.98 H Immature Gran # POC VBG pH POC VBG pCO2 at Temp POC Venous O2 Sat POC VBG Base Excess POC Sodium 122 L Sodium POC Potassium 3.2 L POC Chloride 87 L Chloride Anion Gap POC BUN < 3 L BUN Creatinine POC Creatinine < 0.2 L POC Glucose Osmolality Calcium POC WB Ioniz Calcium 1.04 L Phosphorus Magnesium Direct Bilirubin AST Alkaline Phosphatase Lactate Dehydrogenase Total Protein Albumin Albumin/Globulin Ratio Urine Ketones Trace A 11/21/22 11/21/22 11/21/22 21:12 19:48 19:48 RBC Hgb Hct POC Hct 33.0 L MCV MCH MCHC Plt Count Immature Gran % (Auto) Neut % (Auto) Lymph % (Auto) Lymph # (Auto) [place] # (Auto) Immature Gran # POC VBG pH POC VBG pCO2 at Temp POC Venous O2 Sat POC VBG Base Excess POC Sodium 115 L* Sodium 110 L* POC Potassium POC Chloride 78 L Chloride 73 L Anion Gap POC BUN BUN 6 L Creatinine 0.3 L POC Creatinine 0.2 L POC Glucose Osmolality 232 L Calcium 8.2 L POC WB Ioniz Calcium 1.07 L Phosphorus Magnesium 1.5 L Direct Bilirubin AST 54 H Alkaline Phosphatase 162 H Lactate Dehydrogenase Total Protein Albumin 3.1 L Albumin/Globulin Ratio Urine Ketones 11/21/22 11/21/22 19:48 19:47 RBC 3.01 L Hgb 11.2 L Hct 30.2 L POC Hct MCV 100.3 H MCH 37.2 H MCHC 37.1 H Plt Count 133 L Immature Gran % (Auto) 0.7 H Neut % (Auto) 86.7 H Lymph % (Auto) 2.6 L Lymph # (Auto) 0.24 L [place] # (Auto) Immature Gran # 0.06 H POC VBG pH 7.50 H POC VBG pCO2 at Temp 35.1 L POC Venous O2 Sat 78.0 H POC VBG Base Excess 5.0 H* POC Sodium Sodium POC Potassium POC Chloride Chloride Anion Gap POC BUN BUN Creatinine POC Creatinine POC Glucose Osmolality Calcium POC WB Ioniz Calcium Phosphorus Magnesium Direct Bilirubin AST Alkaline Phosphatase Lactate Dehydrogenase Total Protein Albumin Albumin/Globulin Ratio Urine Ketones Meds: Medications Acetaminophen (Acetaminophen 325 Mg Tablet) 650 mg PO Q6HP PRN; Protocol PRN Reason: Per Pain Protocol/Fever > 101 Albuterol/Ipratropium (Ipratropium/Albuterol 3 Ml Ampul.Neb) 3 ml NEB Q4HP PRN PRN Reason: Shortness Of Breath Atorvastatin Calcium (Atorvastatin 10 Mg Tablet) 10 mg PO QDAY [facility] Last Admin: 11/22/22 08:38 Dose: 10 mg Cephalexin HCl (Cephalexin 500 Mg Capsule) 500 mg PO Q6H [facility]; Protocol Last Admin: 11/23/22 03:53 Dose: 500 mg Chlordiazepoxide HCl (Chlordiazepoxide 25 Mg Capsule) 25 mg PO UD PRN; Protocol PRN Reason: Alcohol Withdrawal/Assess CIWA Enoxaparin Sodium (Enoxaparin 40 Mg/0.4 Ml Syringe) 40 mg SQ DAILY [facility] Last Admin: 11/22/22 08:21 Dose: 40 mg Folic Acid (Folic Acid 1 Mg Tablet) 1 mg PO DAILY [facility] Last Admin: 11/22/22 08:21 Dose: 1 mg Magnesium Sulfate (Magnesium Sulfate) 2 gm in 50 mls @ 50 mls/hr IV UD PRN PRN Reason: Magnesium </= 1.6 Potassium Chloride 40 meq/ (Dextrose) 520 mls @ 130 mls/hr IV UD PRN PRN Reason: Potassium < 3 Sodium Chloride (Sodium Chloride 3%) 500 mls @ 20 mls/hr IV ONCE ONE Stop: 11/23/22 22:36 Last Infusion: 11/23/22 02:43 Dose: 0 mls/hr Iron Carb/Multivit/[place]/Folic Acid (Multivit,Ther Iron,Ca,Fa & Min 1 Tablet) 1 tab PO DAILY [facility] Last Admin: 11/22/22 08:21 Dose: 1 tab Lorazepam (Lorazepam 2 Mg/Ml Vial) 0 mg IV UD PRN; Protocol PRN Reason: Alcohol Withdrawal/Assess CIWA Losartan Potassium (Losartan 25 Mg Tablet) 25 mg PO QDAY [facility] Last Admin: 11/22/22 08:38 Dose: 25 mg Methocarbamol (Methocarbamol 500 Mg Tablet) 500 mg PO DAILYP PRN PRN Reason: spasm Nicotine (Nicotine 21 Mg Patch) 21 mg TOPICAL DAILY@1000 [facility] Last Admin: 11/22/22 10:10 Dose: 21 mg Omeprazole (Omeprazole 20 Mg Capsule) 20 mg PO QAMAC [facility] Last Admin: 11/22/22 08:38 Dose: 20 mg Ondansetron HCl (Ondansetron 4 Mg/2 Ml Vial) 4 mg IV Q4HP PRN PRN Reason: Nausea And Vomiting Oxycodone/Acetaminophen (Oxycodone/Apap 5/325mg Tablet) 1 tab PO Q4HP PRN; Protocol PRN Reason: Pain Last Admin: 11/23/22 04:10 Dose: 1 tab Pneumococcal Polyvalent Vaccine (Pneumococcal 23-Claudia P-Sac Vac 0.5 Ml Syringe) 0.5 ml IM .ONCE ONE Stop: 11/24/22 09:01 Polyethylene Glycol (Polyethylene Glycol 3350 17 Gm Packet) 17 gm PO DAILYP PRN PRN Reason: Constipation Potassium Chloride (Potassium Chloride 20 Meq Tablet) 40 meq PO UD PRN PRN Reason: Potassium < 3 Last Admin: 11/22/22 01:52 Dose: 40 meq Potassium Chloride (Potassium Chloride 20 Meq Tablet) 40 meq PO UD PRN PRN Reason: Potssium is 3-3.5 Senna (Sennosides 1 Tablet) 2 tab PO DAILYP PRN PRN Reason: Constipation Sertraline HCl (Sertraline 50 Mg Tablet) 75 mg PO QDAY [facility] Last Admin: 11/22/22 08:38 Dose: 75 mg Sodium Chloride (0.9 % Sodium Chloride 10 Ml Syringe) 10 ml IV Q8 [facility] Last Admin: 11/23/22 05:22 Dose: 10 ml Thiamine HCl (Thiamine 100 Mg Tablet) 100 mg PO QDAY [facility] Last Admin: 11/22/22 08:21 Dose: 100 mg A/P Narrative A/P Narrative: A: *Acute on chronic hyponatremia: 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 only using lab draw now but does delay read out unfortunately by a few hours -large discrepancy between poc chem and lab, 5-6 point difference making mangmnt difficult -serial sodium -monitor i/o's, uop -Monitor and correct electrolytes deficiencies and trend -CIWA, vitamins/minerals, prn benzo -cont home ARB, statin -Smoking cessation counseling -PT/OT -CM for placement needs -ppx: Lovenox / home ppi Time Spent With Patient Time: Total time spent is greater than 50% in coordination of care (as documented) at patient's floor/unit and/or counseling patient: Subsequent: Total time with patient: 50 - 65 Minutes QUALITY Stroke Symptom Onset Unknown: No VTE Deep Vein Thrombosis/Pulmonary Embolism Present on Admission: No
[2022-11-23 07:58] LABS: ALT/SGPT 21 U/L (<40); AST/SGOT 32 U/L (<40); Albumin 2.2 gm/dL (3.2-5.2); Albumin/Globulin Ratio 0.8 (1.0-2.3); Alkaline Phosphatase 131 U/L (39-117); Bilirubin,Direct 0.2 mg/dL (<0.3); Bilirubin,Total 0.5 mg/dL (0.1-1.0); Blood Urea Nitrogen 5 mg/dL (8-23); Calcium 7.7 mg/dL (8.6-10.4); Carbon Dioxide 23 mmol/L (22-30); Chloride 87 mmol/L (96-108); Globulin 2.9 gm/dL (2.2-3.7); Glomerular Filtration Rate 163; Glucose 104 mg/dL (70-105); Lactate Dehydrogenase 222 U/L (135-225); Phosphorous 2.9 mg/dL (2.5-4.5); Triglycerides 43 mg/dL (<150); Uric Acid 1.8 mg/dL (2.5-8.0)
[2022-11-23] MEDS: ENOXAPARIN 40 MG/0.4 ML SYRINGE SQ SCH (08:27)
[2022-11-23] MEDS: ATORVASTATIN 10 MG TABLET PO SCH (08:27)
[2022-11-23] MEDS: SERTRALINE 50 MG TABLET PO SCH (08:27)
[2022-11-23] MEDS: FOLIC ACID 1 MG TABLET PO SCH (08:28)
[2022-11-23] MEDS: LOSARTAN 25 MG TABLET PO SCH (08:28)
[2022-11-23] MEDS: THIAMINE 100 MG TABLET PO SCH (08:28)
[2022-11-23] MEDS: MULTIVIT,THER IRON,CA,FA & MIN 1 TABLET PO SCH (08:28)
[2022-11-23] MEDS: OMEPRAZOLE 20 MG CAPSULE PO SCH (08:29)
[2022-11-23] MEDS: NICOTINE 21 MG PATCH TOPICAL SCH (10:28)
--- NOTE | 2022-11-23 12:00 | Discharge Summary ---
Discharge Provider Provider IMPORTANT FOLLOW-UP INFORMATION FOR PCP: Patient information: Note initiated : 11/23/22 at 11:59 am Service Date, if different from initiated Date: [] Patient: Anival Devine 67 y/o M admitted on 11/21/22 for Hyponatremia. Pt informed by physician. Chief Complaint: [] Date of admission: 11/21/22 22:53 Primary care physician: Daya Yepez Consults: 11/21/22 Consult to Physician [CONS] Stat Comment: Consulting Provider: Alfredo Rodriguez Reason For Exam: Physician to Consult COURSE Hospital Course Hospital course: History of present illness: Mr. Devine is a 67 year old M Presents the ED at request of his physician for labs that showed sodium of 116. These labs reviewed done at the urgent care yesterday. He was seen at the urgent care for bilateral leg swelling for which has had about a month but worse over the past week to where it is affecting his ambulation. He feels weak and has fallen few times. Looks like he is commonly around 130 or slightly below for his sodium. Of note patient was on chlorthalidone in the past but was taken off of because of low blood pressure and possibly for low sodium. Daughter stated that the patient struggles at home and that she will be living with the patient. Patient is given cephalexin for possible cellulitis versus Venous stasis dermatitis. Patient was asked to go to the ER given the low sodium. Patient is on an SSRI. Family felt that he might be slightly more confused than normal. Patient appeared lucid in the ED. No nausea vomiting but had a couple episodes of loose stool. Patient has a chronic cough which has not changed. CT brain neg Patient says he has little bit of diarrhea since starting the antibiotic. He is also had some nausea He has not been sick otherwise. No recent med changes. Family states his fluid intake is Average. Patient drinks 3-6 beers a day, states he is gone without alcohol for 3 to 4 days without withdrawals. 11/22 Patient seems to sleep well. Patient feeling better today more alert. Sodium corrected too rapidly and will reverse. 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 11/23 Patient says he feels quite tired today. Sodium coming back up appropriately. Monitor closely. No apparent signs of withdrawal at this point. No other complaints. Thrombocytopenia stable. Anemia stable A: *Acute on chronic hyponatremia: 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 with low urine sodium and osmolality *Hypomagnesemia/Hypokalemia/Hypophos: *HTN/HLD: *Anemia, chronic: *Depression: *GERD: *Tobacco abuse: *Alcohol abuse: *Thrombocytopenia: Likely chronic, monitor *peripheral edema R>L *outpt treated for possible cellulitis: P: -Alcohol cessation Discharge diagnosis: Acute on chronic hyponatremia alcohol abuse electrolyte disturbance beer Po Secondary discharge diagnosis: . Potomania chronic anemia depression GERD tobacco abuse alcohol abuse thrombocytopenia Time Spent with Patient Time attestation: Total time spent providing and/or coordinating discharge services: EXAM Constitutional Vitals: Temp Pulse Resp BP Pulse Ox O2 Del Method 98.2 F 63 12 113/58 96 Room Air 11/23/22 04:00 11/23/22 06:01 11/23/22 06:01 11/23/22 06:01 11/23/22 08:00 11/23/22 08:00 Discharge Data Data Completed and Pending Labs on day of discharge: Labs from last 24 hours 11/23/22 11/23/22 11/23/22 07:55 05:30 05:30 WBC 7.5 RBC 2.78 L Hgb 10.3 L Hct 28.6 L POC Hct MCV 102.9 H MCH 37.1 H MCHC 36.0 RDW 11.6 Plt Count 128 L MPV 10.5 Immature Gran % (Auto) 0.8 H Neut % (Auto) 83.4 H Lymph % (Auto) 6.6 L [place] % (Auto) 8.5 Eos % (Auto) 0.4 Baso % (Auto) 0.3 Lymph # (Auto) 0.50 L [place] # (Auto) 0.64 Eos # (Auto) 0.03 Baso # (Auto) 0.02 Immature Gran # 0.06 H Absolute Neutrophils 6.27 POC Sodium Sodium 118 L* 118 L* POC Potassium Potassium 3.4 POC Chloride Chloride 87 L Carbon Dioxide 23 POC Total CO2 Anion Gap 8.0 POC BUN BUN 5 L Creatinine 0.2 L POC Creatinine GFR Calculation 163 Glucose 104 POC Glucose Uric Acid 1.8 L Calcium 7.7 L POC WB Ioniz Calcium Phosphorus 2.9 Magnesium 1.6 Total Bilirubin 0.5 Direct Bilirubin 0.2 GGT 58 AST 32 ALT 21 Alkaline Phosphatase 131 H Lactate Dehydrogenase 222 Total Protein 5.1 L Albumin 2.2 L Globulin 2.9 Albumin/Globulin Ratio 0.8 L Triglycerides 43 11/23/22 11/22/22 11/22/22 01:57 22:50 20:12 WBC RBC Hgb Hct POC Hct 29.0 L MCV MCH MCHC RDW Plt Count MPV Immature Gran % (Auto) Neut % (Auto) Lymph % (Auto) [place] % (Auto) Eos % (Auto) Baso % (Auto) Lymph # (Auto) [place] # (Auto) Eos # (Auto) Baso # (Auto) Immature Gran # Absolute Neutrophils POC Sodium 119 L Sodium 118 L* 114 L* POC Potassium 3.5 Potassium POC Chloride 84 L Chloride Carbon Dioxide POC Total CO2 24.0 Anion Gap POC BUN 4 L BUN Creatinine POC Creatinine < 0.2 L GFR Calculation Glucose POC Glucose 109 H Uric Acid Calcium POC WB Ioniz Calcium 1.11 L Phosphorus Magnesium Total Bilirubin Direct Bilirubin GGT AST ALT Alkaline Phosphatase Lactate Dehydrogenase Total Protein Albumin Globulin Albumin/Globulin Ratio Triglycerides 11/22/22 11/22/22 11/22/22 20:04 20:04 17:21 WBC RBC Hgb Hct POC Hct 30.0 L MCV MCH MCHC RDW Plt Count MPV Immature Gran % (Auto) Neut % (Auto) Lymph % (Auto) [place] % (Auto) Eos % (Auto) Baso % (Auto) Lymph # (Auto) [place] # (Auto) Eos # (Auto) Baso # (Auto) Immature Gran # Absolute Neutrophils POC Sodium 120 L Sodium 113 L* POC Potassium 3.3 Potassium 3.5 POC Chloride 85 L Chloride 82 L Carbon Dioxide 25 POC Total CO2 24.0 Anion Gap 6.0 L POC BUN 5 L BUN 6 L Creatinine 0.3 L POC Creatinine < 0.2 L GFR Calculation 138 Glucose 105 POC Glucose 108 H Uric Acid Calcium 7.5 L POC WB Ioniz Calcium 1.06 L Phosphorus 2.1 L Magnesium Total Bilirubin Direct Bilirubin GGT AST ALT Alkaline Phosphatase Lactate Dehydrogenase Total Protein Albumin Globulin Albumin/Globulin Ratio Triglycerides 11/22/22 11/22/22 16:16 13:33 WBC RBC Hgb Hct POC Hct 30.0 L 28.0 L MCV MCH MCHC RDW Plt Count MPV Immature Gran % (Auto) Neut % (Auto) Lymph % (Auto) [place] % (Auto) Eos % (Auto) Baso % (Auto) Lymph # (Auto) [place] # (Auto) Eos # (Auto) Baso # (Auto) Immature Gran # Absolute Neutrophils POC Sodium 121 L 122 L Sodium POC Potassium 3.4 3.4 Potassium POC Chloride 85 L 88 L Chloride Carbon Dioxide POC Total CO2 25.0 24.0 Anion Gap POC BUN 5 L 5 L BUN Creatinine POC Creatinine < 0.2 L 0.2 L GFR Calculation Glucose POC Glucose 102 164 H Uric Acid Calcium POC WB Ioniz Calcium 1.09 L 1.02 L Phosphorus Magnesium Total Bilirubin Direct Bilirubin GGT AST ALT Alkaline Phosphatase Lactate Dehydrogenase Total Protein Albumin Globulin Albumin/Globulin Ratio Triglycerides Discharge Plan Patient/Caregiver Discharge Instructions Activity: increase activity as tolerated Diet: Regular Diet Prescriptions: New furosemide [Lasix] 40 mg tablet 40 mg PO QAM Qty: 10 0RF Continued omeprazole 20 mg capsule,delayed release(DR/EC) 20 mg PO QDAY methocarbamol 500 mg tablet 500 mg PO QDAY sertraline 100 mg tablet 100 mg PO QDAY losartan 25 mg tablet 25 mg PO QDAY lovastatin 40 mg tablet 40 mg PO QDAY Discontinued cephalexin 500 mg capsule 500 mg PO Q6H 7 Days Qty: 28 0RF Follow Up Plan Follow up with: Daya Yepez ARNP [Primary Care Provider] - Patient Disposition: Xfer SNF Prognosis: Fair Rehab Potential: Fair I certify that the patient requires SNF services: Yes Overall status at discharge: patient is progressing back to baseline QUALITY VTE Deep Vein Thrombosis/Pulmonary Embolism Present on Admission: No
[2022-11-23] MEDS ORDERED: ALBUMIN HUMAN 12.5 GM/50 ML VIAL IV SCH (19:52)
[2022-11-23] MEDS ORDERED: FUROSEMIDE 40 MG/4 ML VIAL IV SCH (19:52)
[2022-11-24] MEDS: 0.9 % SODIUM CHLORIDE 10 ML SYRINGE IV SCH ×3 (04:48→20:49)
--- NOTE | 2022-11-24 07:38 | Internal Med Progress Note ---
SUBJECTIVE Subjective Patient information: Note initiated : 11/24/22 at 7:34 am Service Date, if different from initiated Date: [] Patient: Anival Devine 67 y/o M admitted on 11/21/22 for Hyponatremia. Pt informed by physician. Chief Complaint: [] Interval history: History of present illness: Mr. Devine is a 67 year old M Presents the ED at request of his physician for labs that showed sodium of 116. These labs reviewed done at the urgent care yesterday. He was seen at the urgent care for bilateral leg swelling for which has had about a month but worse over the past week to where it is affecting his ambulation. He feels weak and has fallen few times. Looks like he is commonly around 130 or slightly below for his sodium. Of note patient was on chlorthalidone in the past but was taken off of because of low blood pressure and possibly for low sodium. Daughter stated that the patient struggles at home and that she will be living with the patient. Patient is given cephalexin for possible cellulitis versus Venous stasis de rmatitis. Patient was asked to go to the ER given the low sodium. Patient is on an SSRI. Family felt that he might be slightly more confused than normal. Patient appeared lucid in the ED. No nausea vomiting but had a couple episodes of loose stool. Patient has a chronic cough which has not changed. CT brain neg Patient says he has little bit of diarrhea since starting the antibiotic. He is also had some nausea He has not been sick otherwise. No recent med changes. Family states his fluid intake is Average. Patient drinks 3-6 beers a day, states he is gone without alcohol for 3 to 4 day s without withdrawals. 11/22 Patient seems to sleep well. Patient feeling better today more alert. Sodium corrected too rapidly and will reverse. 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 11/23 Patient says he feels quite tired today. Sodium coming back up appropriately. Monitor closely. No apparent signs of withdrawal at this point. No other complaints. Thrombocytopenia stable. Anemia stable 11/24 Still feels tired and this morning. He is sitting up in bed eating breakfast. Because of the leg edema that he had come in with the pain associated with it as well the IV fluids that have been infused - we gave him lasix with albumen and he diuresed a significant amount of fluid last night. no more edema in legs except for some mild pedal edema right foot. will monitor sodium closely. Pt states his legs are feeling better. Review of Systems: denies headache/fever/chills/nausea/vomiting/chest or abdominal pain/cough/dyspnea/diarrhea. Otherwise see above. Constitutional Vitals: Vital Signs Temp Pulse Resp BP Pulse Ox O2 Del Method 98.2 F 66 15 128/75 95 Room Air 11/24/22 04:01 11/24/22 06:00 11/24/22 06:00 11/24/22 06:00 11/24/22 06:00 11/24/22 06:00 Period Temp Pulse Resp BP Sys/Horne Pulse Ox O2 Del Method O2 Flow Rate Last 24 Hr 97.2 F-98.3 F 58-94 13-21 106-143/64-93 94-100 Room Air-Room Air Intake and Output 11/23/22 11/24/22 11/24/22 19:59 03:59 11:59 Intake Total 1030 100 120 Output Total 2200 3100 Balance -1170 -3000 120 Weight 61 kg Intake & Output: Intake & Output 11/23/22 11/24/22 11/24/22 19:59 03:59 11:59 Intake Total 1030 100 120 Output Total 2200 3100 Balance -1170 -3000 120 Weight 61 kg Intake: IV 100 Dextrose 5% in Water 1,000 ml @ 0 100 mls/hr IV .Q10H [facility] Rx#: [id number] Sodium Chloride 3% 500 ml @ 20 0 mls/hr IV ONCE ONE Rx#: [id number] Oral 1030 120 Output: Void Amount 1925 3100 Stool 275 Other: Meal Dinner Percent of Meal Consumed 75% Feeding Ability Independent Urine Appearance Clear Clear Urine Color Bright Yellow Bright Yellow Urine Odor Normal Normal Stool Size Large Stool Color Yellow Stool Consistency Loose # Voids 0 # Bowel Movements 1 # of times incontinent of 0 Bowels Exam: General: Alert, Awake, No acute Distress Eyes/N/T: EOMI, Head/Neck: neck supple, CV: RRR, No murmurs, Pulm: Clear b/l, no wheezing/rhonchi/rales Abd: soft, nontender, +BS x4 Ext: no clubbing/cyanosis, only mild pedal edema right foot now. Right Valdes ulceration with eschar Neuro: Alert, no focal deficits, moves all extremities, Skin: warm/dry OBJ DATA Labs 11/23/22 05:30 11/23/22 23:00 Labs: Abnormal Lab Results 11/23/22 11/23/22 11/23/22 23:00 18:15 12:02 RBC Hgb Hct POC Hct MCV MCH MCHC Plt Count Immature Gran % (Auto) Neut % (Auto) Lymph % (Auto) Lymph # (Auto) [place] # (Auto) Immature Gran # POC VBG pH POC VBG pCO2 at Temp POC Venous O2 Sat POC VBG Base Excess POC Sodium Sodium 123 L 119 L* 119 L* POC Potassium POC Chloride Chloride Anion Gap POC BUN BUN Creatinine POC Creatinine POC Glucose Osmolality Uric Acid Calcium POC WB Ioniz Calcium Phosphorus Magnesium Direct Bilirubin AST Alkaline Phosphatase Lactate Dehydrogenase Total Protein Albumin Albumin/Globulin Ratio Urine Ketones 11/23/22 11/23/22 11/23/22 07:55 05:30 05:30 RBC 2.78 L Hgb 10.3 L Hct 28.6 L POC Hct MCV 102.9 H MCH 37.1 H MCHC Plt Count 128 L Immature Gran % (Auto) 0.8 H Neut % (Auto) 83.4 H Lymph % (Auto) 6.6 L Lymph # (Auto) 0.50 L [place] # (Auto) Immature Gran # 0.06 H POC VBG pH POC VBG pCO2 at Temp POC Venous O2 Sat POC VBG Base Excess POC Sodium Sodium 118 L* 118 L* POC Potassium POC Chloride Chloride 87 L Anion Gap POC BUN BUN 5 L Creatinine 0.2 L POC Creatinine POC Glucose Osmolality Uric Acid 1.8 L Calcium 7.7 L POC WB Ioniz Calcium Phosphorus Magnesium Direct Bilirubin AST Alkaline Phosphatase 131 H Lactate Dehydrogenase Total Protein 5.1 L Albumin 2.2 L Albumin/Globulin Ratio 0.8 L Urine Ketones 11/23/22 11/22/22 11/22/22 01:57 22:50 20:12 RBC Hgb Hct POC Hct 29.0 L MCV MCH MCHC Plt Count Immature Gran % (Auto) Neut % (Auto) Lymph % (Auto) Lymph # (Auto) [place] # (Auto) Immature Gran # POC VBG pH POC VBG pCO2 at Temp POC Venous O2 Sat POC VBG Base Excess POC Sodium 119 L Sodium 118 L* 114 L* POC Potassium POC Chloride 84 L Chloride Anion Gap POC BUN 4 L BUN Creatinine POC Creatinine < 0.2 L POC Glucose 109 H Osmolality Uric Acid Calcium POC WB Ioniz Calcium 1.11 L Phosphorus Magnesium Direct Bilirubin AST Alkaline Phosphatase Lactate Dehydrogenase Total Protein Albumin Albumin/Globulin Ratio Urine Ketones 11/22/22 11/22/22 11/22/22 20:04 20:04 17:21 RBC Hgb Hct POC Hct 30.0 L MCV MCH MCHC Plt Count Immature Gran % (Auto) Neut % (Auto) Lymph % (Auto) Lymph # (Auto) [place] # (Auto) Immature Gran # POC VBG pH POC VBG pCO2 at Temp POC Venous O2 Sat POC VBG Base Excess POC Sodium 120 L Sodium 113 L* POC Potassium POC Chloride 85 L Chloride 82 L Anion Gap 6.0 L POC BUN 5 L BUN 6 L Creatinine 0.3 L POC Creatinine < 0.2 L POC Glucose 108 H Osmolality Uric Acid Calcium 7.5 L POC WB Ioniz Calcium 1.06 L Phosphorus 2.1 L Magnesium Direct Bilirubin AST Alkaline Phosphatase Lactate Dehydrogenase Total Protein Albumin Albumin/Globulin Ratio Urine Ketones 11/22/22 11/22/22 11/22/22 16:16 13:33 11:35 RBC Hgb Hct POC Hct 30.0 L 28.0 L 28.0 L MCV MCH MCHC Plt Count Immature Gran % (Auto) Neut % (Auto) Lymph % (Auto) Lymph # (Auto) [place] # (Auto) Immature Gran # POC VBG pH POC VBG pCO2 at Temp POC Venous O2 Sat POC VBG Base Excess POC Sodium 121 L 122 L 123 L Sodium POC Potassium POC Chloride 85 L 88 L 88 L Chloride Anion Gap POC BUN 5 L 5 L BUN Creatinine POC Creatinine < 0.2 L 0.2 L 0.2 L POC Glucose 164 H 119 H Osmolality Uric Acid Calcium POC WB Ioniz Calcium 1.09 L 1.02 L 1.12 L Phosphorus Magnesium Direct Bilirubin AST Alkaline Phosphatase Lactate Dehydrogenase Total Protein Albumin Albumin/Globulin Ratio Urine Ketones 11/22/22 11/22/22 11/22/22 08:37 05:30 05:30 RBC 2.84 L Hgb 10.7 L Hct 28.9 L POC Hct 32.0 L MCV 101.8 H MCH 37.7 H MCHC 37.0 H Plt Count 116 L Immature Gran % (Auto) 0.6 H Neut % (Auto) 81.0 H Lymph % (Auto) 6.1 L Lymph # (Auto) 0.50 L [place] # (Auto) 0.98 H Immature Gran # POC VBG pH POC VBG pCO2 at Temp POC Venous O2 Sat POC VBG Base Excess POC Sodium 125 L Sodium 124 L POC Potassium POC Chloride 89 L Chloride 90 L Anion Gap POC BUN < 3 L BUN 3 L Creatinine 0.3 L POC Creatinine 0.2 L POC Glucose Osmolality Uric Acid Calcium 7.7 L POC WB Ioniz Calcium 1.10 L Phosphorus Magnesium Direct Bilirubin 0.3 H AST 42 H Alkaline Phosphatase 142 H Lactate Dehydrogenase 257 H Total Protein 5.3 L Albumin 2.5 L Albumin/Globulin Ratio 0.9 L Urine Ketones 11/22/22 11/21/22 11/21/22 00:02 21:27 21:12 RBC Hgb Hct POC Hct 30.0 L MCV MCH MCHC Plt Count Immature Gran % (Auto) Neut % (Auto) Lymph % (Auto) Lymph # (Auto) [place] # (Auto) Immature Gran # POC VBG pH POC VBG pCO2 at Temp POC Venous O2 Sat POC VBG Base Excess POC Sodium 122 L Sodium POC Potassium 3.2 L POC Chloride 87 L Chloride Anion Gap POC BUN < 3 L BUN Creatinine POC Creatinine < 0.2 L POC Glucose Osmolality 232 L Uric Acid Calcium POC WB Ioniz Calcium 1.04 L Phosphorus Magnesium Direct Bilirubin AST Alkaline Phosphatase Lactate Dehydrogenase Total Protein Albumin Albumin/Globulin Ratio Urine Ketones Trace A 11/21/22 11/21/22 11/21/22 19:48 19:48 19:48 RBC 3.01 L Hgb 11.2 L Hct 30.2 L POC Hct 33.0 L MCV 100.3 H MCH 37.2 H MCHC 37.1 H Plt Count 133 L Immature Gran % (Auto) 0.7 H Neut % (Auto) 86.7 H Lymph % (Auto) 2.6 L Lymph # (Auto) 0.24 L [place] # (Auto) Immature Gran # 0.06 H POC VBG pH POC VBG pCO2 at Temp POC Venous O2 Sat POC VBG Base Excess POC Sodium 115 L* Sodium 110 L* POC Potassium POC Chloride 78 L Chloride 73 L Anion Gap POC BUN BUN 6 L Creatinine 0.3 L POC Creatinine 0.2 L POC Glucose Osmolality Uric Acid Calcium 8.2 L POC WB Ioniz Calcium 1.07 L Phosphorus Magnesium 1.5 L Direct Bilirubin AST 54 H Alkaline Phosphatase 162 H Lactate Dehydrogenase Total Protein Albumin 3.1 L Albumin/Globulin Ratio Urine Ketones 11/21/22 19:47 RBC Hgb Hct POC Hct MCV MCH MCHC Plt Count Immature Gran % (Auto) Neut % (Auto) Lymph % (Auto) Lymph # (Auto) [place] # (Auto) Immature Gran # POC VBG pH 7.50 H POC VBG pCO2 at Temp 35.1 L POC Venous O2 Sat 78.0 H POC VBG Base Excess 5.0 H* POC Sodium Sodium POC Potassium POC Chloride Chloride Anion Gap POC BUN BUN Creatinine POC Creatinine POC Glucose Osmolality Uric Acid Calcium POC WB Ioniz Calcium Phosphorus Magnesium Direct Bilirubin AST Alkaline Phosphatase Lactate Dehydrogenase Total Protein Albumin Albumin/Globulin Ratio Urine Ketones Meds: Medications Acetaminophen (Acetaminophen 325 Mg Tablet) 650 mg PO Q6HP PRN; Protocol PRN Reason: Per Pain Protocol/Fever > 101 Albuterol/Ipratropium (Ipratropium/Albuterol 3 Ml Ampul.Neb) 3 ml NEB Q4HP PRN PRN Reason: Shortness Of Breath Atorvastatin Calcium (Atorvastatin 10 Mg Tablet) 10 mg PO QDAY [facility] Last Admin: 11/23/22 08:27 Dose: 10 mg Chlordiazepoxide HCl (Chlordiazepoxide 25 Mg Capsule) 25 mg PO UD PRN; Protocol PRN Reason: Alcohol Withdrawal/Assess CIWA Enoxaparin Sodium (Enoxaparin 40 Mg/0.4 Ml Syringe) 40 mg SQ DAILY [facility] Last Admin: 11/23/22 08:27 Dose: 40 mg Folic Acid (Folic Acid 1 Mg Tablet) 1 mg PO DAILY [facility] Last Admin: 11/23/22 08:28 Dose: 1 mg Magnesium Sulfate (Magnesium Sulfate) 2 gm in 50 mls @ 50 mls/hr IV UD PRN PRN Reason: Magnesium </= 1.6 Last Infusion: 11/24/22 03:38 Dose: Infused Potassium Chloride 40 meq/ (Dextrose) 520 mls @ 130 mls/hr IV UD PRN PRN Reason: Potassium < 3 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/Folic Acid (Multivit,Ther Iron,Ca,Fa & Min 1 Tablet) 1 tab PO DAILY [facility] Last Admin: 11/23/22 08:28 Dose: 1 tab Lorazepam (Lorazepam 2 Mg/Ml Vial) 0 mg IV UD PRN; Protocol PRN Reason: Alcohol Withdrawal/Assess CIWA Losartan Potassium (Losartan 25 Mg Tablet) 25 mg PO QDAY [facility] Last Admin: 11/23/22 08:28 Dose: 25 mg Methocarbamol (Methocarbamol 500 Mg Tablet) 500 mg PO DAILYP PRN PRN Reason: spasm Nicotine (Nicotine 21 Mg Patch) 21 mg TOPICAL DAILY@1000 [facility] Last Admin: 11/23/22 10:28 Dose: 21 mg Omeprazole (Omeprazole 20 Mg Capsule) 20 mg PO QAMAC [facility] Last Admin: 11/23/22 08:29 Dose: 20 mg Ondansetron HCl (Ondansetron 4 Mg/2 Ml Vial) 4 mg IV Q4HP PRN PRN Reason: Nausea And Vomiting Oxycodone/Acetaminophen (Oxycodone/Apap 5/325mg Tablet) 1 tab PO Q4HP PRN; Protocol PRN Reason: Pain Last Admin: 11/23/22 04:10 Dose: 1 tab Pneumococcal Polyvalent Vaccine (Pneumococcal 23-Claudia P-Sac Vac 0.5 Ml Syringe) 0.5 ml IM .ONCE ONE Stop: 11/24/22 09:01 Polyethylene Glycol (Polyethylene Glycol 3350 17 Gm Packet) 17 gm PO DAILYP PRN PRN Reason: Constipation Potassium Chloride (Potassium Chloride 20 Meq Tablet) 40 meq PO UD PRN PRN Reason: Potassium < 3 Last Admin: 11/22/22 01:52 Dose: 40 meq Potassium Chloride (Potassium Chloride 20 Meq Tablet) 40 meq PO UD PRN PRN Reason: Potssium is 3-3.5 Senna (Sennosides 1 Tablet) 2 tab PO DAILYP PRN PRN Reason: Constipation Sertraline HCl (Sertraline 50 Mg Tablet) 75 mg PO QDAY [facility] Last Admin: 11/23/22 08:27 Dose: 75 mg Sodium Chloride (0.9 % Sodium Chloride 10 Ml Syringe) 10 ml IV Q8 [facility] Last Admin: 11/24/22 04:48 Dose: 10 ml Thiamine HCl (Thiamine 100 Mg Tablet) 100 mg PO QDAY [facility] Last Admin: 11/23/22 08:28 Dose: 100 mg A/P Narrative A/P Narrative: A: *Acute on chronic hyponatremia: 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 with low urine sodium and osmolality * *Hypomagnesemia/Hypokalemia/Hypophos: *HTN/HLD: *Anemia, chronic: *Depression: *GERD: *Anemia, chronic: *Tobacco abuse: *Alcohol abuse: *Thrombocytopenia: Likely chronic, monitor *peripheral edema R>L *outpt treated for possible cellulitis: *Right leg ulceration P: -monitor serial sodium, -monitor i/o's, uop, fluid balance -wound care for leg -Monitor and correct electrolytes deficiencies and trend -CIWA, vitamins/minerals, prn benzo -cont home ARB, statin -Smoking cessation counseling -PT/OT -CM for placement needs -ppx: Lovenox / home ppi Time Spent With Patient Time: Total time spent is greater than 50% in coordination of care (as documented) at patient's floor/unit and/or counseling patient: Subsequent: Total time with patient: 50 - 65 Minutes QUALITY Stroke Symptom Onset Unknown: No VTE Deep Vein Thrombosis/Pulmonary Embolism Present on Admission: No
--- NOTE | 2022-11-24 08:00 | EKG ---
[facility] Test Date: 2022-11-21 Pat Name: Anival Devine Department: ED Room: Gender: Male [employer] Sciences Director: SS : [id number] Requested By: Cullen Fernandez Order Number: [id number] Reading MD: Angel Rodriguez Measurements Intervals [place] Rate: 85 P: 71 ME: 196 QRS: 68 QRSD: 96 T: 48 QT: 419 QTc: 499 Interpretive Statements Sinus rhythm Minimal ST depression, inferior leads Borderline prolonged QT interval Electronically Signed On 11-24-2022 7:45:53 PST by Angel Rodriguez /[id number]
[2022-11-24] MEDS: THIAMINE 100 MG TABLET PO SCH (08:38)
[2022-11-24] MEDS: SERTRALINE 50 MG TABLET PO SCH (08:38)
[2022-11-24] MEDS: ATORVASTATIN 10 MG TABLET PO SCH (08:38)
[2022-11-24] MEDS: LOSARTAN 25 MG TABLET PO SCH (08:39)
[2022-11-24] MEDS: MULTIVIT,THER IRON,CA,FA & MIN 1 TABLET PO SCH (08:39)
[2022-11-24] MEDS: ENOXAPARIN 40 MG/0.4 ML SYRINGE SQ SCH (08:39)
[2022-11-24] MEDS: FOLIC ACID 1 MG TABLET PO SCH (08:39)
[2022-11-24] MEDS: OMEPRAZOLE 20 MG CAPSULE PO SCH (08:39)
[2022-11-24] MEDS ORDERED: PNEUMOCOCCAL 23-VAL P-SAC VAC 0.5 ML SYRINGE IM ONE (09:00)
[2022-11-24] MEDS ORDERED: FLU VACC QS2022-23(6MOS UP)/PF 60 MCG/0.5 ML SYRINGE IM ONE (09:00)
[2022-11-24] MEDS: SODIUM CHLORIDE 1 GM TABLET PO SCH ×2 (10:09→20:49)
[2022-11-24] MEDS: NICOTINE 21 MG PATCH TOPICAL SCH (10:13)
[2022-11-24] MEDS: ACETAMINOPHEN 325 MG TABLET PO PRN ×2 (10:13→17:40)
[2022-11-24 10:24] LABS: Blood Urea Nitrogen 3 mg/dL (8-23); Calcium 8.2 mg/dL (8.6-10.4); Carbon Dioxide 27 mmol/L (22-30); Chloride 87 mmol/L (96-108); Glomerular Filtration Rate 138; Glucose 110 mg/dL (70-105)
[2022-11-24 10:52] LABS: Phosphorous 2.6 mg/dL (2.5-4.5)
--- NOTE | 2022-11-24 11:55 | General Surgery Consult Note ---
HPI Date of Consult Consult Date: 11/24/22 Requesting physician: Alfredo Rodriguez Primary Care Provider: Daya Yepez Consult Narrative Patient Information: Note initiated : 11/24/22 at 11:35 am Service Date, if different from initiated Date: [] Patient: Anival Devine 67 y/o M admitted on 11/21/22 for Hyponatremia. Pt informed by physician. Chief Complaint: [] Chief complaint: Open wound RIGHT lower leg. Hyponatremia rsolving. Reason for consult: Evaluation and treatment of wound / ulcer Right leg. cc:: I saw this gentleman in ICU with Sissy Ramos RN Inpatient wound care nurse.CC: Alfredo Rodriguez. Discussed plan of care with Dr. Rodriguez. Musculoskeletal Additional comments: Claudication. DENIES h/o rest pain. Everyday smoker. Integumentary Integumentary: Present wounds Additional comments: Edema of both legs. Skin tears and ulcer RIGHT lower lateral leg. PFSH PFSH All Active Problems Acute hyponatremia (Acute) Social History smoking status: Current every day smoker MEDS/ALLERGIES Home Medications and Allergies Home Medications Medication Instructions Recorded Confirmed Type losartan 25 mg tablet 25 mg PO QDAY 11/20/22 11/22/22 History lovastatin 40 mg tablet 40 mg PO QDAY 11/20/22 11/22/22 History methocarbamol 500 mg tablet 500 mg PO QDAY 11/20/22 11/22/22 History omeprazole 20 mg capsule,delayed 20 mg PO QDAY 11/20/22 11/22/22 History release sertraline 100 mg tablet 100 mg PO QDAY 11/20/22 11/22/22 History furosemide 40 mg tablet (Lasix) 40 mg PO QAM #10 tabs 11/23/22 Rx Allergies Allergy/AdvReac Type Severity Reaction Status Date / Time hydrocodone AdvReac Intermediate Nausea Uncoded 11/21/22 21:30 Physical Examination Vital Signs Vital signs: Temp Pulse Resp BP Pulse Ox O2 Del Method 97.4 F 87 14 102/55 97 Room Air 11/24/22 08:01 11/24/22 10:01 11/24/22 10:11/24/22 10:01 11/24/22 10:01 11/24/22 10:01 General physical appearance General physical exam: well nourished, no distress, no pain and other (Thin built.) Eyes Eye exam: PERRL and other (Wears glasses.) ENT ENT exam: normal pinna, normal mucosa and no congestion Head Head exam IM: Present atraumatic and normocephalic Neck Neck exam: no masses and no venous distension Cardiovascular Cardiovascular exam IM: Present normal rate and rhythm Peripheral pulses: 0: posterior tibialis (R) and 1+: dorsalis pedis (L) and dorsalis pedis (R) Respiratory Respiratory exam: normal expansion, normal respiratory effort and clear to auscultation Abdomen Abdomen: Present soft, non tender and bowel sounds Integumentary Integumentary: Present other (Resolving edema of both legs with wrinkling of skin. Dry stage 1 epidrmal skin tears RIGHT and LEFT lower legs. Sharp edges arond toenails. VLU Stage 3 RIGHT lower lateral leg with necrotic eschar. ) Neurologic Neurologic: Present normal coordination and normal sensation Musculoskeletal Musculoskeletal: Present other (FROM all joints all extermities. Ambulates without assistance.) Psychiatric Psychiatric: Present oriented to time, oriented to person, oriented to place, speech is normal and memory intact Results Labs 11/23/22 05:30 11/24/22 04:50 Labs: Abnormal lab results 11/23/22 11/23/22 11/23/22 Range/Units 12:02 18:15 23:00 Sodium 119 L* 119 L* 123 L (133-145) mmol/L Chloride (96-108) mmol/L BUN (8-23) mg/dL Creatinine (0.7-1.2) mg/dL Glucose (70-105) mg/dL Calcium (8.6-10.4) mg/dL 11/24/22 Range/Units 04:50 Sodium 123 L (133-145) mmol/L Chloride 87 L (96-108) mmol/L BUN 3 L (8-23) mg/dL Creatinine 0.3 L (0.7-1.2) mg/dL Glucose 110 H (70-105) mg/dL Calcium 8.2 L (8.6-10.4) mg/dL Diabetes panel 11/23/22 11/23/22 11/23/22 Range/Units 12:02 18:15 23:00 Sodium 119 L* 119 L* 123 L (133-145) mmol/L Potassium (3.3-5.1) mmol/L Chloride (96-108) mmol/L Carbon Dioxide (22-30) mmol/L BUN (8-23) mg/dL Creatinine (0.7-1.2) mg/dL Glucose (70-105) mg/dL Calcium (8.6-10.4) mg/dL 11/24/22 Range/Units 04:50 Sodium 123 L (133-145) mmol/L Potassium 3.3 (3.3-5.1) mmol/L Chloride 87 L (96-108) mmol/L Carbon Dioxide 27 (22-30) mmol/L BUN 3 L (8-23) mg/dL Creatinine 0.3 L (0.7-1.2) mg/dL Glucose 110 H (70-105) mg/dL Calcium 8.2 L (8.6-10.4) mg/dL Calcium panel 11/24/22 11/24/22 Range/Units 04:50 09:40 Calcium 8.2 L (8.6-10.4) mg/dL Phosphorus 2.6 (2.5-4.5) mg/dL Pituitary panel 11/23/22 11/23/22 11/23/22 Range/Units 12:02 18:15 23:00 Sodium 119 L* 119 L* 123 L (133-145) mmol/L Potassium (3.3-5.1) mmol/L Chloride (96-108) mmol/L Carbon Dioxide (22-30) mmol/L BUN (8-23) mg/dL Creatinine (0.7-1.2) mg/dL Glucose (70-105) mg/dL Calcium (8.6-10.4) mg/dL 11/24/22 Range/Units 04:50 Sodium 123 L (133-145) mmol/L Potassium 3.3 (3.3-5.1) mmol/L Chloride 87 L (96-108) mmol/L Carbon Dioxide 27 (22-30) mmol/L BUN 3 L (8-23) mg/dL Creatinine 0.3 L (0.7-1.2) mg/dL Glucose 110 H (70-105) mg/dL Calcium 8.2 L (8.6-10.4) mg/dL Adrenal panel 11/23/22 11/23/22 11/23/22 Range/Units 12:02 18:15 23:00 Sodium 119 L* 119 L* 123 L (133-145) mmol/L Potassium (3.3-5.1) mmol/L Chloride (96-108) mmol/L Carbon Dioxide (22-30) mmol/L BUN (8-23) mg/dL Creatinine (0.7-1.2) mg/dL Glucose (70-105) mg/dL Calcium (8.6-10.4) mg/dL 11/24/22 Range/Units 04:50 Sodium 123 L (133-145) mmol/L Potassium 3.3 (3.3-5.1) mmol/L Chloride 87 L (96-108) mmol/L Carbon Dioxide 27 (22-30) mmol/L BUN 3 L (8-23) mg/dL Creatinine 0.3 L (0.7-1.2) mg/dL Glucose 110 H (70-105) mg/dL Calcium 8.2 L (8.6-10.4) mg/dL All other labs normal. Imaging Chest x-ray: report reviewed and image reviewed Additional studies: CT head without contrast is UNREMARKABLE. Chronic changes atrophy. No acute findings. A/P Narrative A/P Narrative: Assessment: VLU Right lower lateral leg. PAD with claudication Hyponatremia improving. Plan of Treatment: Plan: Bedside debridement of RIGHT lower lateral leg. Tissue for c/s. Silvasorb, Adaptic, gauze. X 2 week. If discharged f/u at wound care clinic. Time Spent With Patient Time: Total time spent is greater than 50% in coordination of care (as documented) at patient's floor/unit and/or counseling patient: Initial: Total time with patient: Less than 40 minutes
--- NOTE | 2022-11-24 11:59 | General Surgery Procedure Note ---
Date of procedure: Note initiated : 11/24/22 at 11:55 am Service Date, if different from initiated Date: [] Pre-op diagnosis: Venous leg ulcer RIGHT lower leg with necrotic eschar Post-op diagnosis: same Procedure: Selective debridement at bedside. Findings: Stage 2 ulcer. Full thickness 2.5 x 1.5 x 0.5 CM Anesthesia: none Surgeon: Elfego Dillard Estimated blood loss: 0 Pathology: other (Deep tissue for Gram Stain and c/s) Description of procedure: Selective debridement with supervisor opening and picking and scissors. Condition: stable Disposition: no change
--- NOTE | 2022-11-24 12:21 | Procedure Note ---
DATE OF PROCEDURE: 11/24/2022 PREOPERATIVE DIAGNOSES: Venous leg ulcer, right lower leg with necrotic eschar. POSTOPERATIVE DIAGNOSES: Venous leg ulcer, right lower leg with necrotic eschar. PROCEDURE: Selective debridement at bedside. SURGEON: Elfego Dillard M.D. FINDINGS: This is a stage II ulcer, full-thickness with demarcating, necrotic eschar. Wound dimensions 2.5 x 1.5 x 0.5 cm. ANESTHESIA USED: None. ESTIMATED BLOOD LOSS: 0 mL. CONDITION: Procedure was well tolerated. PROCEDURE NOTE IN DETAIL: After obtaining informed consent, I proceeded to clean this wound with Hibiclens. The area was appropriately prepped and draped. I used a pickup and scissor to excise the necrotic tissue. The subcutaneous tissue was carefully selectively debrided and deep tissue sample was obtained for Gram stain and cultures. Dressings consisted of SilvaSorb ointment, Adaptic gauze, and Kerlix bandages, respectively. After the procedure, I went out and spoke with Dr. Rodriguez about patient's plan of care. If he is discharged, I will follow him at the wound care clinic. We will continue to see him intermittently while he is in the hospital. VD:thad Job ID: [id number] Doc ID: [id number] Elfego Dillard MD MTDD
[2022-11-25] MEDS: ACETAMINOPHEN 325 MG TABLET PO PRN ×3 (06:53→23:01)
[2022-11-25] MEDS: 0.9 % SODIUM CHLORIDE 10 ML SYRINGE IV SCH ×3 (06:56→20:52)
[2022-11-25 07:00] LABS: Blood Urea Nitrogen 5 mg/dL (8-23); Calcium 8.3 mg/dL (8.6-10.4); Carbon Dioxide 25 mmol/L (22-30); Chloride 92 mmol/L (96-108); Glomerular Filtration Rate 138; Glucose 92 mg/dL (70-105)
[2022-11-25] MEDS: OMEPRAZOLE 20 MG CAPSULE PO SCH (07:57)
[2022-11-25] MEDS: LOSARTAN 25 MG TABLET PO SCH (09:33)
[2022-11-25] MEDS: ATORVASTATIN 10 MG TABLET PO SCH (09:33)
[2022-11-25] MEDS: SERTRALINE 50 MG TABLET PO SCH (09:33)
[2022-11-25] MEDS: THIAMINE 100 MG TABLET PO SCH (09:34)
[2022-11-25] MEDS: SODIUM CHLORIDE 1 GM TABLET PO SCH ×2 (09:34→20:14)
[2022-11-25] MEDS: MULTIVIT,THER IRON,CA,FA & MIN 1 TABLET PO SCH (09:34)
[2022-11-25] MEDS: ENOXAPARIN 40 MG/0.4 ML SYRINGE SQ SCH (09:34)
[2022-11-25] MEDS: FOLIC ACID 1 MG TABLET PO SCH (09:34)
--- NOTE | 2022-11-25 10:30 | Internal Med Progress Note ---
SUBJECTIVE Subjective Patient information: Note initiated : 11/25/22 at 10:29 am Service Date, if different from initiated Date: [] Patient: Anival Devine 67 y/o M admitted on 11/21/22 for Hyponatremia. Pt informed by physician. Chief Complaint: [Weakness, abnormal labs] Principal diagnosis: Hyponateremia, pedal edema Interval history: The patient was resting comfortably in bed. He was calm and cooperative. He villa d no active complaints or concerns. He states that he does have a fear of falling and is looking forward to working with PT. Constitutional Vitals: Vital Signs Temp Pulse Resp BP Pulse Ox O2 Del Method O2 Flow Rate 99.3 F H 73 22 134/76 94 Room Air 0 11/25/22 07:21 11/25/22 07:21 11/25/22 07:21 11/25/22 07:21 11/25/22 07:21 11/25/22 07:21 11/24/22 20:33 Period Temp Pulse Resp BP Sys/Horne Pulse Ox O2 Del Method O2 Flow Rate Last 24 Hr 97.6 F-99.3 F 69-81 16-22 98-148/59-85 94-98 Room Air-Room Air 0 Intake and Output 11/24/22 11/25/22 11/25/22 19:59 03:59 11:59 Intake Total 540 200 240 Output Total 400 400 300 Balance 140 -200 -60 Weight 57.969 kg Intake & Output: Intake & Output 11/24/22 11/25/22 11/25/22 19:59 03:59 11:59 Intake Total 540 200 240 Output Total 400 400 300 Balance 140 -200 -60 Weight 57.969 kg Intake: Oral 540 200 240 Output: Void Amount 400 300 Urine/Stool Mix 400 Other: Meal Lunch snack Breakfast Percent of Meal Consumed 100% 100% 75% Feeding Ability Independent Assist with Tray Set Up Independent Nourishment/Supplement name vanilla ice cream Urine Appearance Clear Urine Color Dark Yellow Light Carol Stool Size Moderate Stool Color Brown Brown Stool Consistency Soft Liquid Loose Head Head exam: Present atraumatic and normal inspection Eye Eye exam: Present normal appearance ENT ENT exam: Present mucous membranes moist, normal exam and normal external ear exam Neck Neck exam: Present normal inspection Respiratory Respiratory exam: Present normal respiratory exam Cardiovascular Cardiovascular exam: Present normal rate and rhythm GI/Abdominal GI/Abdominal exam: Present normal bowel sounds Back Exam Back exam: Present normal inspection Neurological Exam Neurological exam: Present alert and oriented X3 Skin Skin exam: Present intact and warm OBJ DATA Labs 11/23/22 05:30 11/25/22 05:23 Labs: Abnormal Lab Results 11/25/22 11/24/22 11/24/22 05:23 18:02 12:09 RBC Hgb Hct POC Hct MCV MCH Plt Count Immature Gran % (Auto) Neut % (Auto) Lymph % (Auto) Lymph # (Auto) Immature Gran # POC Sodium Sodium 124 L 123 L 123 L POC Chloride Chloride 92 L Anion Gap 7.0 L POC BUN BUN 5 L Creatinine 0.3 L POC Creatinine Glucose POC Glucose Uric Acid Calcium 8.3 L POC WB Ioniz Calcium Phosphorus Alkaline Phosphatase Total Protein Albumin Albumin/Globulin Ratio 11/24/22 11/23/22 11/23/22 04:50 23:00 18:15 RBC Hgb Hct POC Hct MCV MCH Plt Count Immature Gran % (Auto) Neut % (Auto) Lymph % (Auto) Lymph # (Auto) Immature Gran # POC Sodium Sodium 123 L 123 L 119 L* POC Chloride Chloride 87 L Anion Gap POC BUN BUN 3 L Creatinine 0.3 L POC Creatinine Glucose 110 H POC Glucose Uric Acid Calcium 8.2 L POC WB Ioniz Calcium Phosphorus Alkaline Phosphatase Total Protein Albumin Albumin/Globulin Ratio 11/23/22 11/23/22 11/23/22 12:02 07:55 05:30 RBC Hgb Hct POC Hct MCV MCH Plt Count Immature Gran % (Auto) Neut % (Auto) Lymph % (Auto) Lymph # (Auto) Immature Gran # POC Sodium Sodium 119 L* 118 L* 118 L* POC Chloride Chloride 87 L Anion Gap POC BUN BUN 5 L Creatinine 0.2 L POC Creatinine Glucose POC Glucose Uric Acid 1.8 L Calcium 7.7 L POC WB Ioniz Calcium Phosphorus Alkaline Phosphatase 131 H Total Protein 5.1 L Albumin 2.2 L Albumin/Globulin Ratio 0.8 L 11/23/22 11/23/22 11/22/22 05:30 01:57 22:50 RBC 2.78 L Hgb 10.3 L Hct 28.6 L POC Hct MCV 102.9 H MCH 37.1 H Plt Count 128 L Immature Gran % (Auto) 0.8 H Neut % (Auto) 83.4 H Lymph % (Auto) 6.6 L Lymph # (Auto) 0.50 L Immature Gran # 0.06 H POC Sodium Sodium 118 L* 114 L* POC Chloride Chloride Anion Gap POC BUN BUN Creatinine POC Creatinine Glucose POC Glucose Uric Acid Calcium POC WB Ioniz Calcium Phosphorus Alkaline Phosphatase Total Protein Albumin Albumin/Globulin Ratio 11/22/22 11/22/22 11/22/22 20:12 20:04 20:04 RBC Hgb Hct POC Hct 29.0 L MCV MCH Plt Count Immature Gran % (Auto) Neut % (Auto) Lymph % (Auto) Lymph # (Auto) Immature Gran # POC Sodium 119 L Sodium 113 L* POC Chloride 84 L Chloride 82 L Anion Gap 6.0 L POC BUN 4 L BUN 6 L Creatinine 0.3 L POC Creatinine < 0.2 L Glucose POC Glucose 109 H Uric Acid Calcium 7.5 L POC WB Ioniz Calcium 1.11 L Phosphorus 2.1 L Alkaline Phosphatase Total Protein Albumin Albumin/Globulin Ratio 11/22/22 11/22/22 11/22/22 17:21 16:16 13:33 RBC Hgb Hct POC Hct 30.0 L 30.0 L 28.0 L MCV MCH Plt Count Immature Gran % (Auto) Neut % (Auto) Lymph % (Auto) Lymph # (Auto) Immature Gran # POC Sodium 120 L 121 L 122 L Sodium POC Chloride 85 L 85 L 88 L Chloride Anion Gap POC BUN 5 L 5 L 5 L BUN Creatinine POC Creatinine < 0.2 L < 0.2 L 0.2 L Glucose POC Glucose 108 H 164 H Uric Acid Calcium POC WB Ioniz Calcium 1.06 L 1.09 L 1.02 L Phosphorus Alkaline Phosphatase Total Protein Albumin Albumin/Globulin Ratio 11/22/22 11:35 RBC Hgb Hct POC Hct 28.0 L MCV MCH Plt Count Immature Gran % (Auto) Neut % (Auto) Lymph % (Auto) Lymph # (Auto) Immature Gran # POC Sodium 123 L Sodium POC Chloride 88 L Chloride Anion Gap POC BUN BUN Creatinine POC Creatinine 0.2 L Glucose POC Glucose 119 H Uric Acid Calcium POC WB Ioniz Calcium 1.12 L Phosphorus Alkaline Phosphatase Total Protein Albumin Albumin/Globulin Ratio Meds: Medications Acetaminophen (Acetaminophen 325 Mg Tablet) 650 mg PO Q6HP PRN; Protocol PRN Reason: Per Pain Protocol/Fever > 101 Last Admin: 11/25/22 06:53 Dose: 650 mg Albuterol/Ipratropium (Ipratropium/Albuterol 3 Ml Ampul.Neb) 3 ml NEB Q4HP PRN PRN Reason: Shortness Of Breath Atorvastatin Calcium (Atorvastatin 10 Mg Tablet) 10 mg PO QDAY [facility] Last Admin: 11/25/22 09:33 Dose: 10 mg Chlordiazepoxide HCl (Chlordiazepoxide 25 Mg Capsule) 25 mg PO UD PRN; Protocol PRN Reason: Alcohol Withdrawal/Assess CIWA Enoxaparin Sodium (Enoxaparin 40 Mg/0.4 Ml Syringe) 40 mg SQ DAILY [facility] Last Admin: 11/25/22 09:34 Dose: 40 mg Folic Acid (Folic Acid 1 Mg Tablet) 1 mg PO DAILY [facility] Last Admin: 11/25/22 09:34 Dose: 1 mg Magnesium Sulfate (Magnesium Sulfate) 2 gm in 50 mls @ 50 mls/hr IV UD PRN PRN Reason: Magnesium </= 1.6 Last Infusion: 11/24/22 03:38 Dose: Infused Potassium Chloride 40 meq/ (Dextrose) 520 mls @ 130 mls/hr IV UD PRN PRN Reason: Potassium < 3 Iron Carb/Multivit/[place]/Folic Acid (Multivit,Ther Iron,Ca,Fa & Min 1 Tablet) 1 tab PO DAILY [facility] Last Admin: 11/25/22 09:34 Dose: 1 tab Lorazepam (Lorazepam 2 Mg/Ml Vial) 0 mg IV UD PRN; Protocol PRN Reason: Alcohol Withdrawal/Assess CIWA Losartan Potassium (Losartan 25 Mg Tablet) 25 mg PO QDAY [facility] Last Admin: 11/25/22 09:33 Dose: 25 mg Methocarbamol (Methocarbamol 500 Mg Tablet) 500 mg PO DAILYP PRN PRN Reason: spasm Nicotine (Nicotine 21 Mg Patch) 21 mg TOPICAL DAILY@1000 [facility] Last Admin: 11/24/22 10:13 Dose: 21 mg Omeprazole (Omeprazole 20 Mg Capsule) 20 mg PO QAMAC [facility] Last Admin: 11/25/22 07:57 Dose: 20 mg Ondansetron HCl (Ondansetron 4 Mg/2 Ml Vial) 4 mg IV Q4HP PRN PRN Reason: Nausea And Vomiting Oxycodone/Acetaminophen (Oxycodone/Apap 5/325mg Tablet) 1 tab PO Q4HP PRN; Protocol PRN Reason: Pain Last Admin: 01/22/23 04:10 Dose: 1 tab Polyethylene Glycol (Polyethylene Glycol 3350 17 Gm Packet) 17 gm PO DAILYP PRN PRN Reason: Constipation Potassium Chloride (Potassium Chloride 20 Meq Tablet) 40 meq PO UD PRN PRN Reason: Potassium < 3 Last Admin: 11/22/22 01:52 Dose: 40 meq Potassium Chloride (Potassium Chloride 20 Meq Tablet) 40 meq PO UD PRN PRN Reason: Potssium is 3-3.5 Last Admin: 11/24/22 12:56 Dose: 40 meq Senna (Sennosides 1 Tablet) 2 tab PO DAILYP PRN PRN Reason: Constipation Sertraline HCl (Sertraline 50 Mg Tablet) 75 mg PO QDAY [facility] Last Admin: 11/25/22 09:33 Dose: 75 mg Sodium Chloride (0.9 % Sodium Chloride 10 Ml Syringe) 10 ml IV Q8 [facility] Last Admin: 11/25/22 06:56 Dose: 10 ml Sodium Chloride (Sodium Chloride 1 Gm Tablet) 1 gm PO BID [facility] Last Admin: 11/25/22 09:34 Dose: 1 gm Thiamine HCl (Thiamine 100 Mg Tablet) 100 mg PO QDAY [facility] Last Admin: 11/25/22 09:34 Dose: 100 mg A/P Narrative A/P Narrative: A: *Acute on chronic hyponatremia: 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 with low urine sodium and osmolality * *Hypomagnesemia/Hypokalemia/Hypophos: *HTN/HLD: *Anemia, chronic: *Depression: *GERD: *Anemia, chronic: *Tobacco abuse: *Alcohol abuse: *Thrombocytopenia: Likely chronic, monitor *peripheral edema R>L *outpt treated for possible cellulitis: *Right leg ulceration P: -Tmax 99.3, will monitor for cellulitis (CBC in AM) -monitor serial sodium, -monitor i/o's, uop, fluid balance -wound care for leg -Monitor and correct electrolytes deficiencies and trend -CIWA, vitamins/minerals, prn benzo -cont home ARB, statin -Smoking cessation counseling -PT/OT -CM for placement needs -ppx: Lovenox / home ppi Plan of Treatment: Plan: Bedside debridement of RIGHT lower lateral leg. Tissue for c/s. Silvasorb, Adaptic, gauze. X 2 week. If discharged f/u at wound care clinic. Time Spent With Patient Time: Total time spent is greater than 50% in coordination of care (as documented) at patient's floor/unit and/or counseling patient: Subsequent: Total time with patient: 25 - 34 minutes QUALITY Stroke Symptom Onset Unknown: No VTE Deep Vein Thrombosis/Pulmonary Embolism Present on Admission: No
[2022-11-25] MEDS: NICOTINE 21 MG PATCH TOPICAL SCH (16:26)
[2022-11-26] MEDS: ACETAMINOPHEN 325 MG TABLET PO PRN ×3 (04:20→17:48)
[2022-11-26] MEDS: 0.9 % SODIUM CHLORIDE 10 ML SYRINGE IV SCH ×4 (04:21→20:23)
[2022-11-26 06:29] LABS: Blood Urea Nitrogen 7 mg/dL (8-23); Calcium 8.2 mg/dL (8.6-10.4); Carbon Dioxide 26 mmol/L (22-30); Chloride 93 mmol/L (96-108); Glomerular Filtration Rate 138; Glucose 97 mg/dL (70-105)
[2022-11-26 06:42] LABS: Basophils # (Auto) 0.04 K/mcL (0.00-0.30); Basophils % (Auto) 0.5 % (0.0-2.0); Eosinophils # (Auto) 0.03 K/mcL (0.00-0.70); Eosinophils % (Auto) 0.4 % (0.0-7.0); Hematocrit 30.5 % (40.1-51.0); Hemoglobin 10.8 g/dL (13.7-17.5); Lymphocytes # (Auto) 0.45 K/mcL (1.50-4.80); Lymphocytes % (Auto) 5.3 % (15.5-49.0); Mean Cell Volume 104.5 fL (80.0-100.0); Mean Corpuscular HGB Conc 35.4 g/dL (31.0-36.0); Mean Platelet Volume 10.1 fL (8.8-12.5); Monocytes # (Auto) 0.56 K/mcL (0.10-0.90); Monocytes % (Auto) 6.6 % (1.0-12.0); Neutrophils % (Auto) 86.8 % (38.0-78.0); Platelet Count 203 K/mcL (140-440); RBC 2.92 M/mcL (4.63-6.08); Red Cell Distribution Width 11.9 % (11.5-14.5); WBC 8.5 K/mcL (4.5-11.0)
--- NOTE | 2022-11-26 06:46 | Internal Med Progress Note ---
SUBJECTIVE Subjective Patient information: Note initiated : 11/26/22 at 6:45 am Service Date, if different from initiated Date: [] Patient: Anival Devine 67 y/o M admitted on 11/21/22 for Hyponatremia. Pt informed by physician. Chief Complaint: [] Principal diagnosis: Hyponateremia, pedal edema Interval history: The patient continues to clinically improve however is unsteady on his feet and states he has a fear of falling. Constitutional Vitals: Vital Signs Temp Pulse Resp BP Pulse Ox O2 Del Method O2 Flow Rate 98.1 F 71 16 157/87 95 Room Air 0 11/26/22 04:11 11/26/22 04:11 11/26/22 04:11 11/26/22 04:11 11/26/22 04:11 11/26/22 04:11 11/24/22 20:33 Period Temp Pulse Resp BP Sys/Horne Pulse Ox O2 Del Method O2 Flow Rate Last 24 Hr 97.4 F-99.5 F 67-73 16-22 100-157/60-87 94-99 Room Air-Room Air Intake and Output 11/25/22 11/26/22 11/26/22 19:59 03:59 11:59 Intake Total 240 240 440 Output Total 300 350 Balance -60 -110 440 Weight 57.017 kg Intake & Output: Intake & Output 11/25/22 11/26/22 11/26/22 19:59 03:59 11:59 Intake Total 240 240 440 Output Total 300 350 Balance -60 -110 440 Weight 57.017 kg Intake: Nourishment/Supplement quantity 240 (ml) Oral 240 440 Output: Void Amount 300 350 Other: Meal Dinner Dinner Percent of Meal Consumed 100% 100% Feeding Ability Independent Nourishment/Supplement name Ensure Urine Appearance Clear Urine Color Bright Yellow Head Head exam: Present atraumatic and normal inspection Eye Eye exam: Present normal appearance ENT ENT exam: Present mucous membranes moist, normal exam and normal external ear exam Neck Neck exam: Present normal inspection Respiratory Respiratory exam: Present normal respiratory exam Cardiovascular Cardiovascular exam: Present normal rate and rhythm GI/Abdominal GI/Abdominal exam: Present normal bowel sounds Back Exam Back exam: Present normal inspection Neurological Exam Neurological exam: Present alert and oriented X3 Skin Skin exam: Present intact and warm OBJ DATA Labs 11/26/22 05:07 11/26/22 05:06 Labs: Abnormal Lab Results 11/26/22 11/26/22 11/25/22 05:07 05:06 05:23 RBC 2.92 L Hgb 10.8 L Hct 30.5 L MCV 104.5 H MCH 37.0 H Plt Count Immature Gran % (Auto) Neut % (Auto) 86.8 H Lymph % (Auto) 5.3 L Lymph # (Auto) 0.45 L Immature Gran # Sodium 125 L 124 L Chloride 93 L 92 L Anion Gap 6.0 L 7.0 L BUN 7 L 5 L Creatinine 0.3 L 0.3 L Glucose Uric Acid Calcium 8.2 L 8.3 L Alkaline Phosphatase Total Protein Albumin Albumin/Globulin Ratio 11/24/22 11/24/22 11/24/22 18:02 12:09 04:50 RBC Hgb Hct MCV MCH Plt Count Immature Gran % (Auto) Neut % (Auto) Lymph % (Auto) Lymph # (Auto) Immature Gran # Sodium 123 L 123 L 123 L Chloride 87 L Anion Gap BUN 3 L Creatinine 0.3 L Glucose 110 H Uric Acid Calcium 8.2 L Alkaline Phosphatase Total Protein Albumin Albumin/Globulin Ratio 11/23/22 11/23/22 11/23/22 23:00 18:15 12:02 RBC Hgb Hct MCV MCH Plt Count Immature Gran % (Auto) Neut % (Auto) Lymph % (Auto) Lymph # (Auto) Immature Gran # Sodium 123 L 119 L* 119 L* Chloride Anion Gap BUN Creatinine Glucose Uric Acid Calcium Alkaline Phosphatase Total Protein Albumin Albumin/Globulin Ratio 11/23/22 11/23/22 11/23/22 07:55 05:30 05:30 RBC 2.78 L Hgb 10.3 L Hct 28.6 L MCV 102.9 H MCH 37.1 H Plt Count 128 L Immature Gran % (Auto) 0.8 H Neut % (Auto) 83.4 H Lymph % (Auto) 6.6 L Lymph # (Auto) 0.50 L Immature Gran # 0.06 H Sodium 118 L* 118 L* Chloride 87 L Anion Gap BUN 5 L Creatinine 0.2 L Glucose Uric Acid 1.8 L Calcium 7.7 L Alkaline Phosphatase 131 H Total Protein 5.1 L Albumin 2.2 L Albumin/Globulin Ratio 0.8 L Meds: Medications Acetaminophen (Acetaminophen 325 Mg Tablet) 650 mg PO Q6HP PRN; Protocol PRN Reason: Per Pain Protocol/Fever > 101 Last Admin: 11/26/22 04:20 Dose: 650 mg Albuterol/Ipratropium (Ipratropium/Albuterol 3 Ml Ampul.Neb) 3 ml NEB Q4HP PRN PRN Reason: Shortness Of Breath Atorvastatin Calcium (Atorvastatin 10 Mg Tablet) 10 mg PO QDAY [facility] Last Admin: 11/25/22 09:33 Dose: 10 mg Enoxaparin Sodium (Enoxaparin 40 Mg/0.4 Ml Syringe) 40 mg SQ DAILY [facility] Last Admin: 11/25/22 09:34 Dose: 40 mg Folic Acid (Folic Acid 1 Mg Tablet) 1 mg PO DAILY [facility] Last Admin: 11/25/22 09:34 Dose: 1 mg Magnesium Sulfate (Magnesium Sulfate) 2 gm in 50 mls @ 50 mls/hr IV UD PRN PRN Reason: Magnesium </= 1.6 Last Infusion: 11/24/22 03:38 Dose: Infused Potassium Chloride 40 meq/ (Dextrose) 520 mls @ 130 mls/hr IV UD PRN PRN Reason: Potassium < 3 Iron Carb/Multivit/[place]/Folic Acid (Multivit,Ther Iron,Ca,Fa & Min 1 Tablet) 1 tab PO DAILY [facility] Last Admin: 11/25/22 09:34 Dose: 1 tab Lorazepam (Lorazepam 2 Mg/Ml Vial) 0 mg IV UD PRN; Protocol PRN Reason: Alcohol Withdrawal/Assess CIWA Losartan Potassium (Losartan 25 Mg Tablet) 25 mg PO QDAY [facility] Last Admin: 11/25/22 09:33 Dose: 25 mg Methocarbamol (Methocarbamol 500 Mg Tablet) 500 mg PO DAILYP PRN PRN Reason: spasm Nicotine (Nicotine 21 Mg Patch) 21 mg TOPICAL DAILY@1000 [facility] Last Admin: 11/25/22 16:26 Dose: 21 mg Omeprazole (Omeprazole 20 Mg Capsule) 20 mg PO QAMAC [facility] Last Admin: 11/25/22 07:57 Dose: 20 mg Ondansetron HCl (Ondansetron 4 Mg/2 Ml Vial) 4 mg IV Q4HP PRN PRN Reason: Nausea And Vomiting Polyethylene Glycol (Polyethylene Glycol 3350 17 Gm Packet) 17 gm PO DAILYP PRN PRN Reason: Constipation Potassium Chloride (Potassium Chloride 20 Meq Tablet) 40 meq PO UD PRN PRN Reason: Potassium < 3 Last Admin: 11/22/22 01:52 Dose: 40 meq Potassium Chloride (Potassium Chloride 20 Meq Tablet) 40 meq PO UD PRN PRN Reason: Potssium is 3-3.5 Last Admin: 11/24/22 12:56 Dose: 40 meq Senna (Sennosides 1 Tablet) 2 tab PO DAILYP PRN PRN Reason: Constipation Sertraline HCl (Sertraline 50 Mg Tablet) 75 mg PO QDAY [facility] Last Admin: 11/25/22 09:33 Dose: 75 mg Sodium Chloride (0.9 % Sodium Chloride 10 Ml Syringe) 10 ml IV Q8 [facility] Last Admin: 11/26/22 04:21 Dose: 10 ml Sodium Chloride (Sodium Chloride 1 Gm Tablet) 1 gm PO BID [facility] Last Admin: 11/25/22 20:14 Dose: 1 gm A/P Narrative A/P Narrative: A: *Acute on chronic hyponatremia: 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 with low urine sodium and osmolality * *Hypomagnesemia/Hypokalemia/Hypophos: *HTN/HLD: *Anemia, chronic: *Depression: *GERD: *Anemia, chronic: *Tobacco abuse: *Alcohol abuse: *Thrombocytopenia: Likely chronic, monitor *peripheral edema R>L *outpt treated for possible cellulitis: *Right leg ulceration P: -Tmax 99.3 yesterday, defervesed and WBC 8.5 today -monitor serial sodium-> up to 125 today -monitor i/o's, uop, fluid balance -wound care for leg -Monitor and correct electrolytes deficiencies and trend -CIWA, vitamins/minerals, prn benzo -cont home ARB, statin -Smoking cessation counseling -PT/OT -CM for placement needs -ppx: Lovenox / home ppi Plan of Treatment: Plan: Bedside debridement of RIGHT lower lateral leg. Tissue for c/s. Silvasorb, Adaptic, gauze. X 2 week. If discharged f/u at wound care clinic. Time Spent With Patient Time: Total time spent is greater than 50% in coordination of care (as documented) at patient's floor/unit and/or counseling patient: Subsequent: Total time with patient: 25 - 34 minutes QUALITY Stroke Symptom Onset Unknown: No VTE Deep Vein Thrombosis/Pulmonary Embolism Present on Admission: No
[2022-11-26] MEDS: FOLIC ACID 1 MG TABLET PO SCH (09:04)
[2022-11-26] MEDS: MULTIVIT,THER IRON,CA,FA & MIN 1 TABLET PO SCH (09:04)
[2022-11-26] MEDS: ATORVASTATIN 10 MG TABLET PO SCH (09:04)
[2022-11-26] MEDS: ENOXAPARIN 40 MG/0.4 ML SYRINGE SQ SCH (09:05)
[2022-11-26] MEDS: LOSARTAN 25 MG TABLET PO SCH (09:05)
[2022-11-26] MEDS: SODIUM CHLORIDE 1 GM TABLET PO SCH ×2 (09:05→20:22)
[2022-11-26] MEDS: OMEPRAZOLE 20 MG CAPSULE PO SCH (09:05)
[2022-11-26] MEDS: SERTRALINE 50 MG TABLET PO SCH (09:05)
--- NOTE | 2022-11-26 09:38 | General Surgery Progress Note ---
SUBJECTIVE Subjective Patient information: Note initiated : 11/26/22 at 9:33 am Service Date, if different from initiated Date: [] Patient: Anival Devine 67 y/o M admitted on 11/21/22 for Hyponatremia. Pt informed by physician. Chief Complaint: [] Principal diagnosis: Hyponateremia, pedal edema Additional PMFSH (Level 3 Only): F/U: Patient seen with Sissy Ramos RNchild care sitter nurse. Progress reviewed with Dr. Bowden. Hospitalist Physician. Constitutional Vitals: Vital Signs Temp Pulse Resp BP Pulse Ox O2 Del Method O2 Flow Rate 98.1 F 75 16 150/86 97 Room Air 0 11/26/22 08:00 11/26/22 08:00 11/26/22 08:00 11/26/22 08:00 11/26/22 08:00 11/26/22 08:00 11/24/22 20:33 Period Temp Pulse Resp BP Sys/Horne Pulse Ox O2 Del Method O2 Flow Rate Last 24 Hr 97.4 F-99.5 F 67-75 16-22 100-157/60-87 95-99 Room Air-Room Air Intake and Output 11/25/22 11/26/22 11/26/22 19:59 03:59 11:59 Intake Total 240 240 540 Output Total 300 350 Balance -60 -110 540 Weight 125 lb 11.2 oz Intake & Output: Intake & Output 11/25/22 11/26/22 11/26/22 19:59 03:59 11:59 Intake Total 240 240 540 Output Total 300 350 Balance -60 -110 540 Weight 125 lb 11.2 oz Intake: Nourishment/Supplement quantity 240 (ml) Oral 240 540 Output: Void Amount 300 350 Other: Meal Dinner Dinner Breakfast Percent of Meal Consumed 100% 100% 50% Feeding Ability Independent Assist with Tray Set Up Nourishment/Supplement name Ensure Urine Appearance Clear Urine Color Bright Yellow Exam: AVSS. Transferred out of ICU to Med Surg floor. Alert, Cooperative and Interactive. Weak / Debilitated. Skin and Wounds. RIGHT leg VLU sith demarcating slough (s/p debrided on 11/24/2022) LEFT leg skin tear sites are improving. A/P Narrative A/P Narrative: Assessment: Steady progress from wound care point of view. Plan of Treatment: Plan: Continue on going wound care per Wound Care Nurse. Silvasorb, Adaptic, gauze. X 2 week. RIGHT leg Mepilex LEFT leg weekly. If discharged f/u at wound care clinic. Time Spent With Patient Time: Total time spent is greater than 50% in coordination of care (as documented) at patient's floor/unit and/or counseling patient:
[2022-11-26] MEDS: NICOTINE 21 MG PATCH TOPICAL SCH (13:32)
[2022-11-27] MEDS: ACETAMINOPHEN 325 MG TABLET PO PRN ×3 (00:24→19:00)
[2022-11-27] MEDS: 0.9 % SODIUM CHLORIDE 10 ML SYRINGE IV SCH ×3 (05:24→21:28)
[2022-11-27] MEDS: ATORVASTATIN 10 MG TABLET PO SCH (08:30)
[2022-11-27] MEDS: SODIUM CHLORIDE 1 GM TABLET PO SCH ×2 (08:30→21:28)
[2022-11-27] MEDS: MULTIVIT,THER IRON,CA,FA & MIN 1 TABLET PO SCH (08:30)
[2022-11-27] MEDS: SERTRALINE 50 MG TABLET PO SCH (08:30)
[2022-11-27] MEDS: OMEPRAZOLE 20 MG CAPSULE PO SCH (08:30)
[2022-11-27] MEDS: FOLIC ACID 1 MG TABLET PO SCH (08:30)
[2022-11-27] MEDS: LOSARTAN 25 MG TABLET PO SCH (08:31)
[2022-11-27] MEDS: ENOXAPARIN 40 MG/0.4 ML SYRINGE SQ SCH (08:31)
[2022-11-27 09:49] LABS: Blood Urea Nitrogen 7 mg/dL (8-23); Calcium 8.4 mg/dL (8.6-10.4); Carbon Dioxide 26 mmol/L (22-30); Chloride 92 mmol/L (96-108); Glomerular Filtration Rate 138; Glucose 107 mg/dL (70-105)
[2022-11-27] MEDS: NICOTINE 21 MG PATCH TOPICAL SCH (10:37)
--- NOTE | 2022-11-27 12:47 | Internal Med Progress Note ---
SUBJECTIVE Subjective Patient information: Note initiated : 11/27/22 at 12:46 pm Service Date, if different from initiated Date: [] Patient: Anival Devine 67 y/o M admitted on 11/21/22 for Hyponatremia. Pt informed by physician. Chief Complaint: [] Principal diagnosis: Hyponateremia, pedal edema Interval history: The patient required physical therapy this morning. Clinically, he is doing well. Awaiting disposition. Constitutional Vitals: Vital Signs Temp Pulse Resp BP Pulse Ox O2 Del Method O2 Flow Rate 98.6 F 69 16 133/74 96 Room Air 0 11/27/22 07:53 11/27/22 07:53 11/27/22 07:53 11/27/22 07:53 11/27/22 07:53 11/27/22 07:53 11/26/22 20:00 Period Temp Pulse Resp BP Sys/Horne Pulse Ox O2 Del Method O2 Flow Rate Last 24 Hr 97.2 F-98.6 F 68-70 16-18 105-149/61-87 95-97 Room Air-Room Air 0 Intake and Output 11/27/22 11/27/22 11/27/22 03:59 11:59 19:59 Intake Total 100 240 Output Total 350 225 Balance -250 15 Intake & Output: Intake & Output 11/27/22 11/27/22 11/27/22 03:59 11:59 19:59 Intake Total 100 240 Output Total 350 225 Balance -250 15 Intake: Oral 100 240 Output: Void Amount 350 225 Other: Meal Breakfast Percent of Meal Consumed 75% Feeding Ability Independent Urine Appearance Cloudy Cloudy Urine Color Yellow Yellow Urine Odor Normal Head Head exam: Present atraumatic and normal inspection Eye Eye exam: Present normal appearance ENT ENT exam: Present mucous membranes moist, normal exam and normal external ear exam Neck Neck exam: Present normal inspection Respiratory Respiratory exam: Present normal respiratory exam Cardiovascular Cardiovascular exam: Present normal rate and rhythm GI/Abdominal GI/Abdominal exam: Present normal bowel sounds Back Exam Back exam: Present normal inspection Neurological Exam Neurological exam: Present alert and oriented X3 Skin Skin exam: Present intact and warm OBJ DATA Labs 11/26/22 05:07 11/27/22 08:34 Labs: Abnormal Lab Results 11/27/22 11/26/22 11/26/22 08:34 05:07 05:06 RBC 2.92 L Hgb 10.8 L Hct 30.5 L MCV 104.5 H MCH 37.0 H Neut % (Auto) 86.8 H Lymph % (Auto) 5.3 L Lymph # (Auto) 0.45 L Sodium 125 L 125 L Chloride 92 L 93 L Anion Gap 7.0 L 6.0 L BUN 7 L 7 L Creatinine 0.3 L 0.3 L Glucose 107 H Calcium 8.4 L 8.2 L 11/25/22 11/24/22 11/24/22 05:23 18:02 12:09 RBC Hgb Hct MCV MCH Neut % (Auto) Lymph % (Auto) Lymph # (Auto) Sodium 124 L 123 L 123 L Chloride 92 L Anion Gap 7.0 L BUN 5 L Creatinine 0.3 L Glucose Calcium 8.3 L Meds: Medications Acetaminophen (Acetaminophen 325 Mg Tablet) 650 mg PO Q6HP PRN; Protocol PRN Reason: Per Pain Protocol/Fever > 101 Last Admin: 11/27/22 08:39 Dose: 650 mg Albuterol/Ipratropium (Ipratropium/Albuterol 3 Ml Ampul.Neb) 3 ml NEB Q4HP PRN PRN Reason: Shortness Of Breath Atorvastatin Calcium (Atorvastatin 10 Mg Tablet) 10 mg PO QDAY [facility] Last Admin: 11/27/22 08:30 Dose: 10 mg Enoxaparin Sodium (Enoxaparin 40 Mg/0.4 Ml Syringe) 40 mg SQ DAILY [facility] Last Admin: 11/27/22 08:31 Dose: 40 mg Folic Acid (Folic Acid 1 Mg Tablet) 1 mg PO DAILY [facility] Last Admin: 11/27/22 08:30 Dose: 1 mg Magnesium Sulfate (Magnesium Sulfate) 2 gm in 50 mls @ 50 mls/hr IV UD PRN PRN Reason: Magnesium </= 1.6 Last Infusion: 11/24/22 03:38 Dose: Infused Potassium Chloride 40 meq/ (Dextrose) 520 mls @ 130 mls/hr IV UD PRN PRN Reason: Potassium < 3 Iron Carb/Multivit/Reeves/Folic Acid (Multivit,Ther Iron,Ca,Fa & Min 1 Tablet) 1 tab PO DAILY [facility] Last Admin: 11/27/22 08:30 Dose: 1 tab Lorazepam (Lorazepam 2 Mg/Ml Vial) 0 mg IV UD PRN; Protocol PRN Reason: Alcohol Withdrawal/Assess CIWA Losartan Potassium (Losartan 25 Mg Tablet) 25 mg PO QDAY [facility] Last Admin: 11/27/22 08:31 Dose: 25 mg Methocarbamol (Methocarbamol 500 Mg Tablet) 500 mg PO DAILYP PRN PRN Reason: spasm Nicotine (Nicotine 21 Mg Patch) 21 mg TOPICAL DAILY@1000 [facility] Last Admin: 11/27/22 10:37 Dose: 21 mg Omeprazole (Omeprazole 20 Mg Capsule) 20 mg PO QAMAC [facility] Last Admin: 11/27/22 08:30 Dose: 20 mg Ondansetron HCl (Ondansetron 4 Mg/2 Ml Vial) 4 mg IV Q4HP PRN PRN Reason: Nausea And Vomiting Polyethylene Glycol (Polyethylene Glycol 3350 17 Gm Packet) 17 gm PO DAILYP PRN PRN Reason: Constipation Potassium Chloride (Potassium Chloride 20 Meq Tablet) 40 meq PO UD PRN PRN Reason: Potassium < 3 Last Admin: 11/22/22 01:52 Dose: 40 meq Potassium Chloride (Potassium Chloride 20 Meq Tablet) 40 meq PO UD PRN PRN Reason: Potssium is 3-3.5 Last Admin: 11/24/22 12:56 Dose: 40 meq Senna (Sennosides 1 Tablet) 2 tab PO DAILYP PRN PRN Reason: Constipation Sertraline HCl (Sertraline 50 Mg Tablet) 75 mg PO QDAY [facility] Last Admin: 11/27/22 08:30 Dose: 75 mg Sodium Chloride (0.9 % Sodium Chloride 10 Ml Syringe) 10 ml IV Q8 [facility] Last Admin: 11/27/22 05:24 Dose: 10 ml Sodium Chloride (Sodium Chloride 1 Gm Tablet) 1 gm PO BID [facility] Last Admin: 11/27/22 08:30 Dose: 1 gm A/P Narrative A/P Narrative: A: *Acute on chronic hyponatremia: 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 with low urine sodium and osmolality * *Hypomagnesemia/Hypokalemia/Hypophos: *HTN/HLD: *Anemia, chronic: *Depression: *GERD: *Anemia, chronic: *Tobacco abuse: *Alcohol abuse: *Thrombocytopenia: Likely chronic, monitor *peripheral edema R>L *outpt treated for possible cellulitis: *Right leg ulceration P: -Tmax 99.3 yesterday, defervesed and WBC 8.5 today -monitor serial sodium-> up to 125 today -monitor i/o's, uop, fluid balance -wound care for leg -Monitor and correct electrolytes deficiencies and trend -CIWA, vitamins/minerals, prn benzo -cont home ARB, statin -Smoking cessation counseling -PT/OT -CM for placement needs -ppx: Lovenox / home ppi Plan of Treatment: Plan: Continue on going wound care per Wound Care Nurse. Silvasorb, Adaptic, gauze. X 2 week. RIGHT leg Mepilex LEFT leg weekly. If discharged f/u at wound care clinic. Time Spent With Patient Time: Total time spent is greater than 50% in coordination of care (as documented) at patient's floor/unit and/or counseling patient: Subsequent: Total time with patient: 25 - 34 minutes QUALITY Stroke Symptom Onset Unknown: No VTE Deep Vein Thrombosis/Pulmonary Embolism Present on Admission: No
--- NOTE | 2022-11-27 16:40 | General Surgery Progress Note ---
SUBJECTIVE Subjective Patient information: Note initiated : 11/27/22 at 4:39 pm Service Date, if different from initiated Date: [] Patient: Anival Devine 67 y/o M admitted on 11/21/22 for Hyponatremia. Pt informed by physician. Chief Complaint: [] Principal diagnosis: Hyponateremia, pedal edema Additional PMFSH (Level 3 Only): Patient seen with Mateo Garcia RN. Wound Care Nurse. Bilateral leg wounds examined. Constitutional Vitals: Vital Signs Temp Pulse Resp BP Pulse Ox O2 Del Method O2 Flow Rate 98.6 F 73 16 122/70 96 Room Air 0 11/27/22 12:00 11/27/22 12:00 11/27/22 12:00 11/27/22 12:00 11/27/22 12:00 11/27/22 12:00 11/26/22 20:00 Period Temp Pulse Resp BP Sys/Horne Pulse Ox O2 Del Method O2 Flow Rate Last 24 Hr 97.2 F-98.6 F 68-73 16-17 105-149/61-87 95-97 Room Air-Room Air 0 Intake and Output 11/27/22 11/27/22 11/27/22 03:59 11:59 19:59 Intake Total 100 240 240 Output Total 350 225 Balance -250 15 240 Weight 123 lb 6.4 oz Patient Weight 11/28/22 03:59 Weight 123 lb 6.4 oz Intake & Output: Intake & Output 11/27/22 11/27/22 11/27/22 03:59 11:59 19:59 Intake Total 100 240 240 Output Total 350 225 Balance -250 15 240 Weight 123 lb 6.4 oz Intake: Oral 100 240 240 Output: Void Amount 350 225 Other: Meal Breakfast Lunch Percent of Meal Consumed 75% 75% Feeding Ability Independent Independent Urine Appearance Cloudy Cloudy Urine Color Yellow Yellow Medium Red Urine Odor Normal Exam: AVSS. Looks good and feels better. Lucid and conversational Edema of legs has nearly resolved. Serum Sodium in125. Slow improvement. (Creatinine is normal Wounds: LEFT mid leg skin tear site is covered with new epithelium. RIGHT mid fonseca skin tear site is covered with new epithelium RIGHT mid lateral VLU site Stage2 has adherent eschar. Periwound inflammatory changes have improved significantly. Small periwound area with fungal dermatitis. Wound c/s. Enterococcus / Pasteurella. On PO Keflex. Responding to treatment.. Will clean VLU site with Chlorhexidine and trim eschar. A/P Narrative A/P Narrative: Assessment; Satisfactory progress fro wound care point of view. Plan of Treatment: Plan: Continue on going wound care per Wound Care Nurse. If discharged f/u at wound care clinic. Time Spent With Patient Time: Total time spent is greater than 50% in coordination of care (as documented) at patient's floor/unit and/or counseling patient:
[2022-11-28] MEDS: ACETAMINOPHEN 325 MG TABLET PO PRN ×4 (01:04→23:29)
[2022-11-28] MEDS: 0.9 % SODIUM CHLORIDE 10 ML SYRINGE IV SCH ×3 (05:18→21:34)
[2022-11-28] MEDS: OMEPRAZOLE 20 MG CAPSULE PO SCH (07:07)
[2022-11-28] MEDS: SERTRALINE 50 MG TABLET PO SCH (09:17)
[2022-11-28] MEDS: MULTIVIT,THER IRON,CA,FA & MIN 1 TABLET PO SCH (09:19)
[2022-11-28] MEDS: SODIUM CHLORIDE 1 GM TABLET PO SCH ×2 (09:20→21:34)
[2022-11-28] MEDS: FOLIC ACID 1 MG TABLET PO SCH (09:20)
[2022-11-28] MEDS: LOSARTAN 25 MG TABLET PO SCH (09:21)
[2022-11-28] MEDS: ENOXAPARIN 40 MG/0.4 ML SYRINGE SQ SCH (09:22)
[2022-11-28] MEDS: ATORVASTATIN 10 MG TABLET PO SCH (09:22)
[2022-11-28] MEDS: NICOTINE 21 MG PATCH TOPICAL SCH (10:38)
--- NOTE | 2022-11-28 12:40 | Internal Med Progress Note ---
SUBJECTIVE Subjective Patient information: Note initiated : 11/28/22 at 12:40 pm Service Date, if different from initiated Date: [] Patient: Anival Devine 67 y/o M admitted on 11/21/22 for Hyponatremia. Pt informed by physician. Chief Complaint: [Altered mental status] Principal diagnosis: Hyponateremia, pedal edema Interval history: The patient was resting comfortably in bed. He remains medically status quo. He remains unsteady on his feet. PT. He is awaiting half-way facility. Constitutional Vitals: Vital Signs Temp Pulse Resp BP Pulse Ox O2 Del Method O2 Flow Rate 98.6 F 70 14 121/68 95 Room Air 0 11/28/22 11:25 11/28/22 11:25 11/28/22 11:25 11/28/22 11:25 11/28/22 11:25 11/28/22 11:25 11/26/22 20:00 Period Temp Pulse Resp BP Sys/Horne Pulse Ox O2 Del Method O2 Flow Rate Last 24 Hr 98.2 F-99.7 F 63-82 14-18 107-142/68-80 95-96 Room Air-Room Air Intake and Output 11/28/22 11/28/22 11/28/22 03:59 11:59 19:59 Intake Total 550 240 Output Total 350 Balance 200 240 Weight 56.382 kg Intake & Output: Intake & Output 11/28/22 11/28/22 11/28/22 03:59 11:59 19:59 Intake Total 550 240 Output Total 350 Balance 200 240 Weight 56.382 kg Intake: Oral 550 240 Output: Void Amount 350 Other: Meal x1 orange sherbert Breakfast Percent of Meal Consumed 100% 100% Feeding Ability Independent Independent Urine Appearance Clear Urine Color Yellow Head Head exam: Present atraumatic and normal inspection Eye Eye exam: Present normal appearance ENT ENT exam: Present mucous membranes moist, normal exam and normal external ear exam Neck Neck exam: Present normal inspection Respiratory Respiratory exam: Present normal respiratory exam Cardiovascular Cardiovascular exam: Present normal rate and rhythm GI/Abdominal GI/Abdominal exam: Present normal bowel sounds Back Exam Back exam: Present normal inspection Neurological Exam Neurological exam: Present alert and oriented X3 Skin Skin exam: Present intact and warm OBJ DATA Labs 11/26/22 05:07 11/27/22 08:34 Labs: Abnormal Lab Results 11/27/22 11/26/22 11/26/22 08:34 05:07 05:06 RBC 2.92 L Hgb 10.8 L Hct 30.5 L MCV 104.5 H MCH 37.0 H Neut % (Auto) 86.8 H Lymph % (Auto) 5.3 L Lymph # (Auto) 0.45 L Sodium 125 L 125 L Chloride 92 L 93 L Anion Gap 7.0 L 6.0 L BUN 7 L 7 L Creatinine 0.3 L 0.3 L Glucose 107 H Calcium 8.4 L 8.2 L Meds: Medications Acetaminophen (Acetaminophen 325 Mg Tablet) 650 mg PO Q6HP PRN; Protocol PRN Reason: Per Pain Protocol/Fever > 101 Last Admin: 11/28/22 07:12 Dose: 650 mg Albuterol/Ipratropium (Ipratropium/Albuterol 3 Ml Ampul.Neb) 3 ml NEB Q4HP PRN PRN Reason: Shortness Of Breath Atorvastatin Calcium (Atorvastatin 10 Mg Tablet) 10 mg PO QDAY [facility] Last Admin: 11/28/22 09:22 Dose: 10 mg Enoxaparin Sodium (Enoxaparin 40 Mg/0.4 Ml Syringe) 40 mg SQ DAILY [facility] Last Admin: 11/28/22 09:22 Dose: 40 mg Folic Acid (Folic Acid 1 Mg Tablet) 1 mg PO DAILY [facility] Last Admin: 11/28/22 09:20 Dose: 1 mg Magnesium Sulfate (Magnesium Sulfate) 2 gm in 50 mls @ 50 mls/hr IV UD PRN PRN Reason: Magnesium </= 1.6 Last Infusion: 11/24/22 03:38 Dose: Infused Potassium Chloride 40 meq/ (Dextrose) 520 mls @ 130 mls/hr IV UD PRN PRN Reason: Potassium < 3 Iron Carb/Multivit/Ham Doctor/Folic Acid (Multivit,Ther Iron,Ca,Fa & Min 1 Tablet) 1 tab PO DAILY [facility] Last Admin: 11/28/22 09:19 Dose: 1 tab Lorazepam (Lorazepam 2 Mg/Ml Vial) 0 mg IV UD PRN; Protocol PRN Reason: Alcohol Withdrawal/Assess CIWA Losartan Potassium (Losartan 25 Mg Tablet) 25 mg PO QDAY [facility] Last Admin: 11/28/22 09:21 Dose: 25 mg Methocarbamol (Methocarbamol 500 Mg Tablet) 500 mg PO DAILYP PRN PRN Reason: spasm Nicotine (Nicotine 21 Mg Patch) 21 mg TOPICAL DAILY@1000 [facility] Last Admin: 11/28/22 10:38 Dose: 21 mg Omeprazole (Omeprazole 20 Mg Capsule) 20 mg PO QAMAC [facility] Last Admin: 11/28/22 07:07 Dose: 20 mg Ondansetron HCl (Ondansetron 4 Mg/2 Ml Vial) 4 mg IV Q4HP PRN PRN Reason: Nausea And Vomiting Polyethylene Glycol (Polyethylene Glycol 3350 17 Gm Packet) 17 gm PO DAILYP PRN PRN Reason: Constipation Potassium Chloride (Potassium Chloride 20 Meq Tablet) 40 meq PO UD PRN PRN Reason: Potassium < 3 Last Admin: 11/22/22 01:52 Dose: 40 meq Potassium Chloride (Potassium Chloride 20 Meq Tablet) 40 meq PO UD PRN PRN Reason: Potssium is 3-3.5 Last Admin: 11/24/22 12:56 Dose: 40 meq Senna (Sennosides 1 Tablet) 2 tab PO DAILYP PRN PRN Reason: Constipation Sertraline HCl (Sertraline 50 Mg Tablet) 75 mg PO QDAY [facility] Last Admin: 11/28/22 09:17 Dose: 75 mg Sodium Chloride (0.9 % Sodium Chloride 10 Ml Syringe) 10 ml IV Q8 [facility] Last Admin: 11/28/22 05:18 Dose: 10 ml Sodium Chloride (Sodium Chloride 1 Gm Tablet) 1 gm PO BID [facility] Last Admin: 11/28/22 09:20 Dose: 1 gm A/P Narrative A/P Narrative: A: *Acute on chronic hyponatremia: 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 with low urine sodium and osmolality * *Hypomagnesemia/Hypokalemia/Hypophos: *HTN/HLD: *Anemia, chronic: *Depression: *GERD: *Anemia, chronic: *Tobacco abuse: *Alcohol abuse: *Thrombocytopenia: Likely chronic, monitor *peripheral edema R>L *outpt treated for possible cellulitis: *Right leg ulceration P: -The patient is medically status quo and awaiting discharge to a half-way facility -monitor serial sodium-> up to 125 today -monitor i/o's, uop, fluid balance -wound care for leg -Monitor and correct electrolytes deficiencies and trend -CIWA, vitamins/minerals, prn benzo -cont home ARB, statin -Smoking cessation counseling -PT/OT -CM for placement needs -ppx: Lovenox / home ppi Plan of Treatment: Plan: Continue on going wound care per Wound Care Nurse. If discharged f/u at wound care clinic. Time Spent With Patient Time: Total time spent is greater than 50% in coordination of care (as documented) at patient's floor/unit and/or counseling patient: QUALITY Stroke Symptom Onset Unknown: No VTE Deep Vein Thrombosis/Pulmonary Embolism Present on Admission: No
[2022-11-29] MEDS: ACETAMINOPHEN 325 MG TABLET PO PRN ×3 (06:31→19:59)
[2022-11-29] MEDS: 0.9 % SODIUM CHLORIDE 10 ML SYRINGE IV SCH ×3 (06:40→21:34)
[2022-11-29] MEDS: SERTRALINE 50 MG TABLET PO SCH (08:42)
[2022-11-29] MEDS: LOSARTAN 25 MG TABLET PO SCH (08:43)
[2022-11-29] MEDS: OMEPRAZOLE 20 MG CAPSULE PO SCH (08:43)
[2022-11-29] MEDS: FOLIC ACID 1 MG TABLET PO SCH (08:43)
[2022-11-29] MEDS: ENOXAPARIN 40 MG/0.4 ML SYRINGE SQ SCH (08:43)
[2022-11-29] MEDS: SODIUM CHLORIDE 1 GM TABLET PO SCH ×2 (08:43→21:34)
[2022-11-29] MEDS: MULTIVIT,THER IRON,CA,FA & MIN 1 TABLET PO SCH (08:43)
[2022-11-29] MEDS: ATORVASTATIN 10 MG TABLET PO SCH (08:44)
--- NOTE | 2022-11-29 10:47 | Internal Med Progress Note ---
SUBJECTIVE Subjective Patient information: Note initiated : 11/29/22 at 10:45 am Service Date, if different from initiated Date: [] Patient: Anival Devine 67 y/o M admitted on 11/21/22 for Hyponatremia. Pt informed by physician. Chief Complaint: [Low Na, leg swelling, failure to thrive] Principal diagnosis: Hyponateremia, pedal edema Interval history: Patient was able to ambulate nearly 170ft yesterday. Doing much better. Still awaiting SNF. RN present at bedside to discuss plan of care. Constitutional Vitals: Vital Signs Temp Pulse Resp BP Pulse Ox O2 Del Method O2 Flow Rate 98.2 F 65 16 138/79 94 Room Air 0 11/29/22 06:39 11/29/22 06:39 11/29/22 06:39 11/29/22 06:39 11/29/22 06:39 11/29/22 06:39 11/26/22 20:00 Period Temp Pulse Resp BP Sys/Horne Pulse Ox O2 Del Method O2 Flow Rate Last 24 Hr 97.8 F-99.1 F 65-82 14-18 108-138/60-84 94-96 Room Air-Room Air Intake and Output 11/28/22 11/29/22 11/29/22 19:59 03:59 11:59 Intake Total 240 400 240 Output Total 400 250 Balance -160 400 -10 Weight 56.926 kg Intake & Output: Intake & Output 11/28/22 11/29/22 11/29/22 19:59 03:59 11:59 Intake Total 240 400 240 Output Total 400 250 Balance -160 400 -10 Weight 56.926 kg Intake: Oral 240 400 240 Output: Void Amount 400 250 Other: Meal Lunch Breakfast Percent of Meal Consumed 100% 100% Feeding Ability Independent Urine Appearance Clear Urine Color Yellow Head Head exam: Present atraumatic and normal inspection Eye Eye exam: Present normal appearance ENT ENT exam: Present mucous membranes moist, normal exam and normal external ear exam Neck Neck exam: Present normal inspection Respiratory Respiratory exam: Present normal respiratory exam Cardiovascular Cardiovascular exam: Present normal rate and rhythm GI/Abdominal GI/Abdominal exam: Present normal bowel sounds Back Exam Back exam: Present normal inspection Neurological Exam Neurological exam: Present alert and oriented X3 Skin Skin exam: Present intact and warm OBJ DATA Labs 11/26/22 05:07 11/27/22 08:34 Labs: Abnormal Lab Results 11/27/22 08:34 Sodium 125 L Chloride 92 L Anion Gap 7.0 L BUN 7 L Creatinine 0.3 L Glucose 107 H Calcium 8.4 L Meds: Medications Acetaminophen (Acetaminophen 325 Mg Tablet) 650 mg PO Q6HP PRN; Protocol PRN Reason: Per Pain Protocol/Fever > 101 Last Admin: 11/29/22 06:31 Dose: 650 mg Albuterol/Ipratropium (Ipratropium/Albuterol 3 Ml Ampul.Neb) 3 ml NEB Q4HP PRN PRN Reason: Shortness Of Breath Atorvastatin Calcium (Atorvastatin 10 Mg Tablet) 10 mg PO QDAY [facility] Last Admin: 11/29/22 08:44 Dose: 10 mg Enoxaparin Sodium (Enoxaparin 40 Mg/0.4 Ml Syringe) 40 mg SQ DAILY [facility] Last Admin: 11/29/22 08:43 Dose: 40 mg Folic Acid (Folic Acid 1 Mg Tablet) 1 mg PO DAILY [facility] Last Admin: 11/29/22 08:43 Dose: 1 mg Magnesium Sulfate (Magnesium Sulfate) 2 gm in 50 mls @ 50 mls/hr IV UD PRN PRN Reason: Magnesium </= 1.6 Last Infusion: 11/24/22 03:38 Dose: Infused Potassium Chloride 40 meq/ (Dextrose) 520 mls @ 130 mls/hr IV UD PRN PRN Reason: Potassium < 3 Iron Carb/Multivit/Investor/Folic Acid (Multivit,Ther Iron,Ca,Fa & Min 1 Tablet) 1 tab PO DAILY [facility] Last Admin: 11/29/22 08:43 Dose: 1 tab Lorazepam (Lorazepam 2 Mg/Ml Vial) 0 mg IV UD PRN; Protocol PRN Reason: Alcohol Withdrawal/Assess CIWA Losartan Potassium (Losartan 25 Mg Tablet) 25 mg PO QDAY [facility] Last Admin: 11/29/22 08:43 Dose: 25 mg Methocarbamol (Methocarbamol 500 Mg Tablet) 500 mg PO DAILYP PRN PRN Reason: spasm Nicotine (Nicotine 21 Mg Patch) 21 mg TOPICAL DAILY@1000 [facility] Last Admin: 11/28/22 10:38 Dose: 21 mg Omeprazole (Omeprazole 20 Mg Capsule) 20 mg PO QAMAC [facility] Last Admin: 11/29/22 08:43 Dose: 20 mg Ondansetron HCl (Ondansetron 4 Mg/2 Ml Vial) 4 mg IV Q4HP PRN PRN Reason: Nausea And Vomiting Polyethylene Glycol (Polyethylene Glycol 3350 17 Gm Packet) 17 gm PO DAILYP PRN PRN Reason: Constipation Potassium Chloride (Potassium Chloride 20 Meq Tablet) 40 meq PO UD PRN PRN Reason: Potassium < 3 Last Admin: 11/22/22 01:52 Dose: 40 meq Potassium Chloride (Potassium Chloride 20 Meq Tablet) 40 meq PO UD PRN PRN Reason: Potssium is 3-3.5 Last Admin: 11/24/22 12:56 Dose: 40 meq Senna (Sennosides 1 Tablet) 2 tab PO DAILYP PRN PRN Reason: Constipation Sertraline HCl (Sertraline 50 Mg Tablet) 75 mg PO QDAY [facility] Last Admin: 11/29/22 08:42 Dose: 75 mg Sodium Chloride (0.9 % Sodium Chloride 10 Ml Syringe) 10 ml IV Q8 [facility] Last Admin: 11/29/22 06:40 Dose: 10 ml Sodium Chloride (Sodium Chloride 1 Gm Tablet) 1 gm PO BID [facility] Last Admin: 11/29/22 08:43 Dose: 1 gm A/P Narrative A/P Narrative: A: *Acute on chronic hyponatremia: 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 with low urine sodium and osmolality * *Hypomagnesemia/Hypokalemia/Hypophos: *HTN/HLD: *Anemia, chronic: *Depression: *GERD: *Anemia, chronic: *Tobacco abuse: *Alcohol abuse: *Thrombocytopenia: Likely chronic, monitor *peripheral edema R>L *outpt treated for possible cellulitis: *Right leg ulceration P: -The patient is medically status quo and awaiting discharge to a fpc facility -monitor serial sodium-> up to 125 stable -monitor i/o's, uop, fluid balance -wound care for leg-> Dr. Weeks performed bedside debridement, swelling has resolved -Monitor and correct electrolytes deficiencies and trend -CIWA, vitamins/minerals, prn benzo-> discontinued -cont home ARB, statin -Smoking cessation counseling -PT/OT -CM for placement needs -ppx: Lovenox / home ppi Plan of Treatment: Plan: Continue on going wound care per Wound Care Nurse. If discharged f/u at wound care clinic. Time Spent With Patient Time: Total time spent is greater than 50% in coordination of care (as documented) at patient's floor/unit and/or counseling patient: Subsequent: Total time with patient: 25 - 34 minutes QUALITY Stroke Symptom Onset Unknown: No VTE Deep Vein Thrombosis/Pulmonary Embolism Present on Admission: No
[2022-11-29] MEDS: NICOTINE 21 MG PATCH TOPICAL SCH (13:02)
[2022-11-30] MEDS: ACETAMINOPHEN 325 MG TABLET PO PRN ×4 (02:07→20:10)
[2022-11-30] MEDS: SODIUM CHLORIDE 1 GM TABLET PO SCH ×2 (08:20→20:11)
[2022-11-30] MEDS: FOLIC ACID 1 MG TABLET PO SCH (08:21)
[2022-11-30] MEDS: LOSARTAN 25 MG TABLET PO SCH (08:21)
[2022-11-30] MEDS: 0.9 % SODIUM CHLORIDE 10 ML SYRINGE IV SCH ×3 (08:21→20:11)
[2022-11-30] MEDS: MULTIVIT,THER IRON,CA,FA & MIN 1 TABLET PO SCH (08:21)
[2022-11-30] MEDS: ATORVASTATIN 10 MG TABLET PO SCH (08:21)
[2022-11-30] MEDS: OMEPRAZOLE 20 MG CAPSULE PO SCH (08:21)
[2022-11-30] MEDS: SERTRALINE 50 MG TABLET PO SCH (08:21)
[2022-11-30] MEDS: ENOXAPARIN 40 MG/0.4 ML SYRINGE SQ SCH (08:25)
[2022-11-30] MEDS: NICOTINE 21 MG PATCH TOPICAL SCH (14:17)
--- NOTE | 2022-11-30 17:10 | Internal Med Progress Note ---
SUBJECTIVE Subjective Patient information: Note initiated : 11/30/22 at 5:01 pm Service Date, if different from initiated Date: [] Patient: Anival Devine 67 y/o M admitted on 11/21/22 for Hyponatremia. Pt informed by physician. Chief Complaint: [] Principal diagnosis: Hyponateremia, pedal edema Interval history: Mr. Devine is a 67 year old M Presents the ED at request of his physician for labs that showed sodium of 116. These labs reviewed done at the urgent care yesterday. He was seen at the urgent care for bilateral leg swelling for which has had about a month but worse over the past week to where it is affecting his ambulation. He feels weak and has fallen few times. Looks like he is commonly around 130 or slightly below for his sodium. Of note patient was on chlorthalidone in the past but was taken off of because of low blood pressure and possibly for low sodium. Daughter stated that the patient struggles at home and that she will be living with the patient. Patient is given cephalexin for possible cellulitis versus Venous stasis dermatitis. Patient was asked to go to the ER given the low sodium. Patient is on an SSRI. Family felt that he might be slightly more confused than normal. Patient appeared lucid in the ED. No nausea vomiting but had a couple episodes of loose stool. Patient has a chronic cough which has not changed. CT brain neg Patient says he has little bit of diarrhea since starting the antibiotic. He is also had some nausea He has not been sick otherwise. No recent med changes. Family states his fluid intake is Average. Patient drinks 3-6 beers a day, states he is gone without alcohol for 3 to 4 days without withdrawals. 11/22 Patient seems to sleep well. Patient feeling better today more alert. Sodium corrected too rapidly and will reverse. 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 11/23 Patient says he feels quite tired today. Sodium coming back up appropriately. Monitor closely. No apparent signs of withdrawal at this point. No other complaints. Thrombocytopenia stable. Anemia stable 11/24 Still feels tired and this morning. He is sitting up in bed eating breakfast. Because of the leg edema that he had come in with the pain associated with it as well the IV fluids that have been infused - we gave him lasix with albumen and he diuresed a significant amount of fluid last night. no more edema in legs exc ept for some mild pedal edema right foot. will monitor sodium closely. Pt states his legs are feeling better. 11/30: There was no major overnight events. Patient is medically stable. He has no complaint. Pending SNF discharge. Constitutional Vitals: Vital Signs Temp Pulse Resp BP Pulse Ox O2 Del Method O2 Flow Rate 36.8 C 68 18 123/72 96 Room Air 0 11/30/22 15:04 11/30/22 15:04 11/30/22 15:04 11/30/22 15:04 11/30/22 15:04 11/30/22 12:00 11/26/22 20:00 Period Temp Pulse Resp BP Sys/Horne Pulse Ox O2 Del Method O2 Flow Rate Last 24 Hr 36.3 C-37.2 C 67-79 16-20 112-147/64-83 95-98 Room Air-Room Air Intake and Output 11/30/22 11/30/22 11/30/22 03:59 11:59 19:59 Intake Total 100 240 600 Output Total 200 825 Balance -100 -585 600 Intake & Output: Intake & Output 11/30/22 11/30/22 11/30/22 03:59 11:59 19:59 Intake Total 100 240 600 Output Total 200 825 Balance -100 -585 600 Intake: Oral 100 240 600 Output: Void Amount 200 825 Other: Meal Breakfast Nourishment/Supplement Percent of Meal Consumed 75% Urine Appearance Clear Cloudy Urine Color Light Carol Bright Yellow Head Head exam: Present atraumatic and normal inspection Eye Eye exam: Present normal appearance ENT ENT exam: Present mucous membranes moist, normal exam and normal external ear exam Neck Neck exam: Present normal inspection Respiratory Respiratory exam: Present normal respiratory exam Cardiovascular Cardiovascular exam: Present normal rate and rhythm GI/Abdominal GI/Abdominal exam: Present normal bowel sounds Back Exam Back exam: Present normal inspection Neurological Exam Neurological exam: Present alert and oriented X3 Skin Skin exam: Present warm; Absent intact Additional comments: leg ulcer covered by wound dressing OBJ DATA Labs 11/26/22 05:07 11/27/22 08:34 Meds: Medications Acetaminophen (Acetaminophen 325 Mg Tablet) 650 mg PO Q6HP PRN; Protocol PRN Reason: Per Pain Protocol/Fever > 101 Last Admin: 11/30/22 14:26 Dose: 650 mg Albuterol/Ipratropium (Ipratropium/Albuterol 3 Ml Ampul.Neb) 3 ml NEB Q4HP PRN PRN Reason: Shortness Of Breath Atorvastatin Calcium (Atorvastatin 10 Mg Tablet) 10 mg PO QDAY [facility] Last Admin: 11/30/22 08:21 Dose: 10 mg Enoxaparin Sodium (Enoxaparin 40 Mg/0.4 Ml Syringe) 40 mg SQ DAILY [facility] Last Admin: 11/30/22 08:25 Dose: 40 mg Folic Acid (Folic Acid 1 Mg Tablet) 1 mg PO DAILY [facility] Last Admin: 11/30/22 08:21 Dose: 1 mg Magnesium Sulfate (Magnesium Sulfate) 2 gm in 50 mls @ 50 mls/hr IV UD PRN PRN Reason: Magnesium </= 1.6 Last Infusion: 11/24/22 03:38 Dose: Infused Potassium Chloride 40 meq/ (Dextrose) 520 mls @ 130 mls/hr IV UD PRN PRN Reason: Potassium < 3 Iron Carb/Multivit/[employer]/Folic Acid (Multivit,Ther Iron,Ca,Fa & Min 1 Tablet) 1 tab PO DAILY [facility] Last Admin: 11/30/22 08:21 Dose: 1 tab Lorazepam (Lorazepam 2 Mg/Ml Vial) 0 mg IV UD PRN; Protocol PRN Reason: Alcohol Withdrawal/Assess CIWA Losartan Potassium (Losartan 25 Mg Tablet) 25 mg PO QDAY [facility] Last Admin: 11/30/22 08:21 Dose: 25 mg Methocarbamol (Methocarbamol 500 Mg Tablet) 500 mg PO DAILYP PRN PRN Reason: spasm Nicotine (Nicotine 21 Mg Patch) 21 mg TOPICAL DAILY@1000 [facility] Last Admin: 11/30/22 14:17 Dose: 21 mg Omeprazole (Omeprazole 20 Mg Capsule) 20 mg PO QAMAC [facility] Last Admin: 11/30/22 08:21 Dose: 20 mg Ondansetron HCl (Ondansetron 4 Mg/2 Ml Vial) 4 mg IV Q4HP PRN PRN Reason: Nausea And Vomiting Polyethylene Glycol (Polyethylene Glycol 3350 17 Gm Packet) 17 gm PO DAILYP PRN PRN Reason: Constipation Potassium Chloride (Potassium Chloride 20 Meq Tablet) 40 meq PO UD PRN PRN Reason: Potassium < 3 Last Admin: 11/22/22 01:52 Dose: 40 meq Potassium Chloride (Potassium Chloride 20 Meq Tablet) 40 meq PO UD PRN PRN Reason: Potssium is 3-3.5 Last Admin: 11/24/22 12:56 Dose: 40 meq Senna (Sennosides 1 Tablet) 2 tab PO DAILYP PRN PRN Reason: Constipation Sertraline HCl (Sertraline 50 Mg Tablet) 75 mg PO QDAY [facility] Last Admin: 11/30/22 08:21 Dose: 75 mg Sodium Chloride (0.9 % Sodium Chloride 10 Ml Syringe) 10 ml IV Q8 [facility] Last Admin: 11/30/22 14:17 Dose: 10 ml Sodium Chloride (Sodium Chloride 1 Gm Tablet) 1 gm PO BID [facility] Last Admin: 11/30/22 08:20 Dose: 1 gm A/P Assessment and plan (1) Acute hyponatremia: Status: Acute (2) Hypocalcemia: Status: Acute (3) Macrocytic anemia with vitamin B12 deficiency: Status: Acute (4) Depression: Status: Acute (5) GERD (gastroesophageal reflux disease): Status: Acute (6) Cigarette smoker: Status: Acute (7) Essential hypertension: Status: Acute (8) Mixed dyslipidemia: Status: Acute Narrative A/P Narrative: Assessment and Plans: 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 Hypocalcemia: Multivitamin oral replacement 3. Anemia, macrocytic and hyperchromic: Secondary to chronic alcoholism Multivitamin and Folic acid oral replacement 4. Depression: Continue Zoloft 5. GERD: Continue Prilosec 6. Essential hypertension: Continue Losartan 7. Mixed dyslipidemia: Continue Lipitor GI ppx: Prilosec DVT ppx: Lovenox Code status: Full Prognosis: stable Disposition: inpatient med surg; SNF Plan of Treatment: Plan: Continue on going wound care per Wound Care Nurse. If discharged f/u at wound care clinic. Time Spent With Patient Time: Total time spent is greater than 50% in coordination of care (as documented) at patient's floor/unit and/or counseling patient: Subsequent: Total time with patient: 35 - 49 minutes QUALITY Stroke Symptom Onset Unknown: No VTE Deep Vein Thrombosis/Pulmonary Embolism Present on Admission: No
[2022-12-01] MEDS: ACETAMINOPHEN 325 MG TABLET PO PRN ×4 (02:40→21:00)
[2022-12-01] MEDS ORDERED: diphenhydrAMINE 25 MG CAPSULE ONE (03:15)
[2022-12-01] MEDS: diphenhydrAMINE 25 MG CAPSULE PO PRN ×3 (03:16→23:31)
[2022-12-01] MEDS: 0.9 % SODIUM CHLORIDE 10 ML SYRINGE IV SCH ×3 (05:10→21:41)
[2022-12-01] MEDS: SERTRALINE 50 MG TABLET PO SCH (08:06)
[2022-12-01] MEDS: ENOXAPARIN 40 MG/0.4 ML SYRINGE SQ SCH (08:07)
[2022-12-01] MEDS: SODIUM CHLORIDE 1 GM TABLET PO SCH ×2 (08:07→21:00)
[2022-12-01] MEDS: MULTIVIT,THER IRON,CA,FA & MIN 1 TABLET PO SCH (08:07)
[2022-12-01] MEDS: LOSARTAN 25 MG TABLET PO SCH (08:07)
[2022-12-01] MEDS: OMEPRAZOLE 20 MG CAPSULE PO SCH (08:07)
[2022-12-01] MEDS: ATORVASTATIN 10 MG TABLET PO SCH (08:07)
[2022-12-01] MEDS: FOLIC ACID 1 MG TABLET PO SCH (08:07)
--- NOTE | 2022-12-01 13:52 | Internal Med Progress Note ---
SUBJECTIVE Subjective Patient information: Note initiated : 12/01/22 at 1:50 pm Service Date, if different from initiated Date: [] Patient: Anival Devine 67 y/o M admitted on 11/21/22 for Hyponatremia. Pt informed by physician. Chief Complaint: [] Principal diagnosis: Hyponateremia, pedal edema Interval history: Mr. Devine is a 67 year old M Presents the ED at request of his physician for labs that showed sodium of 116. These labs reviewed done at the urgent care yesterday. He was seen at the urgent care for bilateral leg swelling for which has had about a month but worse over the past week to where it is affecting his ambulation. He feels weak and has fallen few times. Looks like he is commonly around 130 or slightly below for his sodium. Of note patient was on chlorthalidone in the past but was taken off of because of low blood pressure and possibly for low sodium. Daughter stated that the patient struggles at home and that she will be living with the patient. Patient is given cephalexin for possible cellulitis versus Venous stasis dermatitis. Patient was asked to go to the ER given the low sodium. Patient is on an SSRI. Family felt that he might be slightly more confused than normal. Patient appeared lucid in the ED. No nausea vomiting but had a couple episodes of loose stool. Patient has a chronic cough which has not changed. CT brain neg Patient says he has little bit of diarrhea since starting the antibiotic. He is also had some nausea He has not been sick otherwise. No recent med changes. Family states his fluid intake is Average. Patient drinks 3-6 beers a day, states he is gone without alcohol for 3 to 4 days without withdrawals. 11/22 Patient seems to sleep well. Patient feeling better today more alert. Sodium corrected too rapidly and will reverse. 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 11/23 Patient says he feels quite tired today. Sodium coming back up appropriately. Monitor closely. No apparent signs of withdrawal at this point. No other complaints. Thrombocytopenia stable. Anemia stable 11/24 Still feels tired and this morning. He is sitting up in bed eating breakfast. Because of the leg edema that he had come in with the pain associated with it as well the IV fluids that have been infused - we gave him lasix with albumen and he diuresed a significant amount of fluid last night. no more edema in legs exc ept for some mild pedal edema right foot. will monitor sodium closely. Pt states his legs are feeling better. 11/30: There was no major overnight events. Patient is medically stable. He has no complaint. Pending SNF discharge. 12/01: There was no major overnight events. Patient is medically stable. He has no complaints. He has good appetite and finished most of the food provided. Pending SNF discharge. Constitutional Vitals: Vital Signs Temp Pulse Resp BP Pulse Ox O2 Del Method O2 Flow Rate 36.8 C 69 18 139/80 96 Room Air 0 12/01/22 08:00 12/01/22 08:00 12/01/22 08:00 12/01/22 08:00 12/01/22 08:00 12/01/22 08:00 11/26/22 20:00 Period Temp Pulse Resp BP Sys/Horne Pulse Ox O2 Del Method O2 Flow Rate Last 24 Hr 36.5 C-36.8 C 68-74 18-18 121-140/71-80 95-97 Room Air-Room Air Intake and Output 12/01/22 12/01/22 12/01/22 03:59 11:59 19:59 Intake Total 200 440 Output Total 300 Balance -100 440 Intake & Output: Intake & Output 12/01/22 12/01/22 12/01/22 03:59 11:59 19:59 Intake Total 200 440 Output Total 300 Balance -100 440 Intake: Oral 200 440 Output: Void Amount 300 Other: Meal Breakfast Percent of Meal Consumed 100% Urine Appearance Clear Urine Color Dark Yellow Stool Color Brown # Voids 1 # Bowel Movements 1 Head Head exam: Present atraumatic and normal inspection Eye Eye exam: Present normal appearance ENT ENT exam: Present mucous membranes moist, normal exam and normal external ear exam Neck Neck exam: Present normal inspection Respiratory Respiratory exam: Present normal respiratory exam Cardiovascular Cardiovascular exam: Present normal rate and rhythm GI/Abdominal GI/Abdominal exam: Present normal bowel sounds Back Exam Back exam: Present normal inspection Neurological Exam Neurological exam: Present alert and oriented X3 Skin Skin exam: Present intact and warm OBJ DATA Labs 11/26/22 05:07 11/27/22 08:34 Meds: Medications Acetaminophen (Acetaminophen 325 Mg Tablet) 650 mg PO Q6HP PRN; Protocol PRN Reason: Per Pain Protocol/Fever > 101 Last Admin: 12/01/22 08:05 Dose: 650 mg Albuterol/Ipratropium (Ipratropium/Albuterol 3 Ml Ampul.Neb) 3 ml NEB Q4HP PRN PRN Reason: Shortness Of Breath Atorvastatin Calcium (Atorvastatin 10 Mg Tablet) 10 mg PO QDAY [facility] Last Admin: 12/01/22 08:07 Dose: 10 mg Diphenhydramine HCl (Diphenhydramine 25 Mg Capsule) 25 mg PO Q6HP PRN PRN Reason: Itching Last Admin: 12/01/22 03:16 Dose: 25 mg Enoxaparin Sodium (Enoxaparin 40 Mg/0.4 Ml Syringe) 40 mg SQ DAILY [facility] Last Admin: 12/01/22 08:07 Dose: 40 mg Folic Acid (Folic Acid 1 Mg Tablet) 1 mg PO DAILY [facility] Last Admin: 12/01/22 08:07 Dose: 1 mg Magnesium Sulfate (Magnesium Sulfate) 2 gm in 50 mls @ 50 mls/hr IV UD PRN PRN Reason: Magnesium </= 1.6 Last Infusion: 11/24/22 03:38 Dose: Infused Potassium Chloride 40 meq/ (Dextrose) 520 mls @ 130 mls/hr IV UD PRN PRN Reason: Potassium < 3 Iron Carb/Multivit/[place]/Folic Acid (Multivit,Ther Iron,Ca,Fa & Min 1 Tablet) 1 tab PO DAILY [facility] Last Admin: 12/01/22 08:07 Dose: 1 tab Lorazepam (Lorazepam 2 Mg/Ml Vial) 0 mg IV UD PRN; Protocol PRN Reason: Alcohol Withdrawal/Assess CIWA Losartan Potassium (Losartan 25 Mg Tablet) 25 mg PO QDAY [facility] Last Admin: 12/01/22 08:07 Dose: 25 mg Methocarbamol (Methocarbamol 500 Mg Tablet) 500 mg PO DAILYP PRN PRN Reason: spasm Nicotine (Nicotine 21 Mg Patch) 21 mg TOPICAL DAILY@1000 [facility] Last Admin: 11/30/22 14:17 Dose: 21 mg Omeprazole (Omeprazole 20 Mg Capsule) 20 mg PO QAMAC [facility] Last Admin: 12/01/22 08:07 Dose: 20 mg Ondansetron HCl (Ondansetron 4 Mg/2 Ml Vial) 4 mg IV Q4HP PRN PRN Reason: Nausea And Vomiting Polyethylene Glycol (Polyethylene Glycol 3350 17 Gm Packet) 17 gm PO DAILYP PRN PRN Reason: Constipation Potassium Chloride (Potassium Chloride 20 Meq Tablet) 40 meq PO UD PRN PRN Reason: Potassium < 3 Last Admin: 11/22/22 01:52 Dose: 40 meq Potassium Chloride (Potassium Chloride 20 Meq Tablet) 40 meq PO UD PRN PRN Reason: Potssium is 3-3.5 Last Admin: 11/24/22 12:56 Dose: 40 meq Senna (Sennosides 1 Tablet) 2 tab PO DAILYP PRN PRN Reason: Constipation Sertraline HCl (Sertraline 50 Mg Tablet) 75 mg PO QDAY [facility] Last Admin: 12/01/22 08:06 Dose: 75 mg Sodium Chloride (0.9 % Sodium Chloride 10 Ml Syringe) 10 ml IV Q8 [facility] Last Admin: 12/01/22 05:10 Dose: 10 ml Sodium Chloride (Sodium Chloride 1 Gm Tablet) 1 gm PO BID [facility] Last Admin: 12/01/22 08:07 Dose: 1 gm A/P Assessment and plan (1) Acute hyponatremia: Status: Acute (2) Hypocalcemia: Status: Acute (3) Macrocytic anemia with vitamin B12 deficiency: Status: Acute (4) Depression: Status: Acute (5) GERD (gastroesophageal reflux disease): Status: Acute (6) Cigarette smoker: Status: Acute (7) Essential hypertension: Status: Acute (8) Mixed dyslipidemia: Status: Acute Narrative A/P Narrative: Assessment and Plans: 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 Hypocalcemia: Multivitamin oral replacement 3. Anemia, macrocytic and hyperchromic: Secondary to chronic alcoholism Multivitamin and Folic acid oral replacement 4. Depression: Continue Zoloft 5. GERD: Continue Prilosec 6. Essential hypertension: Continue Losartan 7. Mixed dyslipidemia: Continue Lipitor GI ppx: Prilosec DVT ppx: Lovenox Code status: Full Prognosis: stable Disposition: inpatient med surg; SNF Plan of Treatment: Plan: Continue on going wound care per Wound Care Nurse. If discharged f/u at wound care clinic. Time Spent With Patient Time: Total time spent is greater than 50% in coordination of care (as documented) at patient's floor/unit and/or counseling patient: Subsequent: Total time with patient: 35 - 49 minutes QUALITY Stroke Symptom Onset Unknown: No VTE Deep Vein Thrombosis/Pulmonary Embolism Present on Admission: No
[2022-12-01] MEDS: NICOTINE 21 MG PATCH TOPICAL SCH (14:58)
[2022-12-02] MEDS: ACETAMINOPHEN 325 MG TABLET PO PRN ×3 (02:18→14:02)
[2022-12-02] MEDS: 0.9 % SODIUM CHLORIDE 10 ML SYRINGE IV SCH (05:48)
[2022-12-02] MEDS: FOLIC ACID 1 MG TABLET PO SCH (09:08)
[2022-12-02] MEDS: LOSARTAN 25 MG TABLET PO SCH (09:08)
[2022-12-02] MEDS: ENOXAPARIN 40 MG/0.4 ML SYRINGE SQ SCH (09:09)
[2022-12-02] MEDS: SERTRALINE 50 MG TABLET PO SCH (09:09)
[2022-12-02] MEDS: SODIUM CHLORIDE 1 GM TABLET PO SCH (09:09)
[2022-12-02] MEDS: OMEPRAZOLE 20 MG CAPSULE PO SCH (09:09)
[2022-12-02] MEDS: ATORVASTATIN 10 MG TABLET PO SCH (09:09)
[2022-12-02] MEDS: MULTIVIT,THER IRON,CA,FA & MIN 1 TABLET PO SCH (09:09)
--- NOTE | 2022-12-02 12:13 | Discharge Summary ---
Discharge Provider Provider IMPORTANT FOLLOW-UP INFORMATION FOR PCP: Patient information: Note initiated : 12/02/22 at 12:11 pm Service Date, if different from initiated Date: [] Patient: Anival Devine 67 y/o M admitted on 11/21/22 for Hyponatremia. Pt informed by physician. Chief Complaint: [] Date of admission: 11/21/22 22:53 Discharge date: 12/02/22 Primary care physician: Daya Yepez Attending physician on admission: Alfredo Rodriguez Consults: 11/21/22 Consult to Physician [CONS] Stat Comment: Consulting Provider: Alfredo Rodriguez Reason For Exam: Physician to Consult 11/24/22 10:53 Consult to Physician [CONS] Routine Comment: Wound to right lower leg Consulting Provider: Elfego Dillard Reason For Exam: Physician to Consult Attending physician on discharge: Wade Daniels Pui COURSE Hospital Course Hospital course: Mr. Devine is a 67 year old M Presents the ED at request of his physician for labs that showed sodium of 116. These labs reviewed done at the urgent care yesterday. He was seen at the urgent care for bilateral leg swelling for which has had about a month but worse over the past week to where it is affecting his ambulation. He feels weak and has fallen few times. Looks like he is commonly around 130 or slightly below for his sodium. Of note patient was on chlorthalidone in the past but was taken off of because of low blood pressure and possibly for low sodium. Daughter stated that the patient struggles at home and that she will be living with the patient. Patient is given cephalexin for possible cellulitis versus Venous stasis dermatitis. Patient was asked to go to the ER given the low sodium. Patient is on an SSRI. Family felt that he might be slightly more confused than normal. Patient appeared lucid in the ED. No nausea vomiting but had a couple episodes of loose stool. Patient has a chronic cough which has not changed. CT brain neg Patient says he has little bit of diarrhea since starting the antibiotic. He is also had some nausea He has not been sick otherwise. No recent med changes. Family states his fluid intake is Average. Patient drinks 3-6 beers a day, states he is gone without alcohol for 3 to 4 days without withdrawals. 11/22 Patient seems to sleep well. Patient feeling better today more alert. Sodium corrected too rapidly and will reverse. 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 11/23 Patient says he feels quite tired today. Sodium coming back up appropriately. Monitor closely. No apparent signs of withdrawal at this point. No other complaints. Thrombocytopenia stable. Anemia stable 11/24 Still feels tired and this morning. He is sitting up in bed eating breakfast. Because of the leg edema that he had come in with the pain associated with it as well the IV fluids that have been infused - we gave him lasix with albumen and he diuresed a significant amount of fluid last night. no more edema in legs except for some mild pedal edema right foot. will monitor sodium closely. Pt states his legs are feeling better. 11/30: There was no major overnight events. Patient is medically stable. He has no complaint. Pending SNF discharge. 12/01: There was no major overnight events. Patient is medically stable. He has no complaints. He has good appetite and finished most of the food provided. Pending SNF discharge. 12/02: Discharged to [facility]. Discharge diagnosis: Beer potomania Time Spent with Patient Time attestation: Total time spent providing and/or coordinating discharge services: Time spent: Less than 30 minutes EXAM Constitutional Vitals: Temp Pulse Resp BP Pulse Ox O2 Del Method O2 Flow Rate 36.9 C 69 20 165/86 96 Room Air 98 12/02/22 07:46 12/02/22 07:46 12/02/22 07:46 12/02/22 07:46 12/02/22 07:46 12/02/22 07:46 12/01/22 23:00 General appearance: cooperative and no acute distress Head Head exam: Present atraumatic and normocephalic Eye Eye exam: Present EOMI and PERRL ENT ENT exam: Present mucous membranes moist, normal exam and normal external ear exam Neck Neck exam: Present normal inspection; Absent lymphadenopathy, tenderness or thyromegaly Respiratory Respiratory exam: Absent accessory muscle use, respiratory distress or wheezes Cardiovascular Cardiovascular exam: Present normal rate and rhythm; Absent JVD GI/Abdominal GI/Abdominal exam: Present normal bowel sounds and soft; Absent organomegaly or tenderness Rectal Rectal exam: Present deferred Extremities Exam Extremities exam: Present full ROM, normal capillary refill and normal inspection; Absent tenderness Neurological Exam Neurological exam: Present alert, CN II-XII intact and oriented X3; Absent motor sensory deficit Psychiatric Psychiatric exam: Present normal affect and normal mood; Absent anxious or depressed Skin Skin exam: Present dry and intact Discharge Plan Patient/Caregiver Discharge Instructions Activity: increase activity as tolerated Diet: Regular Diet Instructions: Furosemide (By mouth), Cellulitis (DC), Sepsis (GEN) Activity Restrictions/Additional Instructions: Increase activity as tolerated. May resume regular diet as tolerated. Call your primary care physician for sustained fever greater than 100.5, increase in redness/swelling, for pain not relieved with rest/medication, or any question/concerns. This discharge packet is provided to you to help keep you informed about your care. We want to ensure you get everything you need when you go home. You will also be receiving a call from us in a few days to follow up with you and see how you are doing since your discharge. This gives us a chance to listen to any concerns you maybe experiencing since you were discharged or any additional needs you may have, as well as providing us feedback on your care experience. We strive to always provide excellent care and thank you for your feedback and for choosing [facility]. Prescriptions: New furosemide [Lasix] 40 mg tablet 40 mg PO QAM Qty: 10 0RF Continued omeprazole 20 mg capsule,delayed release(DR/EC) 20 mg PO QDAY methocarbamol 500 mg tablet 500 mg PO QDAY sertraline 100 mg tablet 100 mg PO QDAY losartan 25 mg tablet 25 mg PO QDAY lovastatin 40 mg tablet 40 mg PO QDAY Discontinued cephalexin 500 mg capsule 500 mg PO Q6H 7 Days Qty: 28 0RF Follow Up Plan Follow up with: Daya Yepez ARNP [Primary Care Provider] - 12/04/22 1:30 pm Elfego Dillard MD [Physician] - (The office will call you with an appointment.) Patient Disposition: Xfer SNF Plan of Treatment: Plan: Continue on going wound care per Wound Care Nurse. If discharged f/u at wound care clinic. Prognosis: Fair Rehab Potential: Fair I certify that the patient requires SNF services: Yes Overall status at discharge: patient is progressing back to baseline Discharge Orders: Discharge Order (Routine); Ordered 12/02/22 Ordered By: Wade Henriquez QUALITY VTE Deep Vein Thrombosis/Pulmonary Embolism Present on Admission: No
[2022-12-02] MEDS: NICOTINE 21 MG PATCH TOPICAL SCH (12:58)
== END 2022-12-02 14:05 | DRG 641 ==
LOC: ED 19:18 → ICU 22:53 → MEDSUR 11-24 17:47
PROVIDERS: ADMIT Internal Medicine; ATTEND Internal Medicine